=== PATIENT | female | born 1960 | race Caucasian/White ===

== ENCOUNTER → 2023-06-22 10:08 | Outpatient (REF) | payer BC, SELFPAY ==
[2023-06-22 13:25] LABS: Blood Urea Nitrogen 20 mg/dl (7-17); Calcium 9.5 mg/dl (8.4-10.2); Carbon Dioxide 29 mmol/L (22-30); Chloride 105 mmol/L (98-107); Glucose 144 mg/dl (70-99); Potassium 3.9 mmol/L (3.5-5.1); Sodium 139 mmol/L (135-145); eGFR > 60.00
== END ==
LOC: HWLAB 10:08
PROVIDERS: ATTENDING PHYSICIAN Surgery Vascular Surgery; FAMILY PHYSICIAN Family Medicine
DX: I35.0 Nonrheumatic aortic (valve) stenosis (principal)
CPT/HCPCS: 36415; 80048

== ENCOUNTER → 2023-06-27 11:39 | Outpatient (REF) | payer BC, SELFPAY | LOC: HWRAD 11:39 | PROVIDERS: ATTENDING PHYSICIAN Surgery Vascular Surgery; FAMILY PHYSICIAN Family Medicine | DX: I35.0 Nonrheumatic aortic (valve) stenosis (principal) | CPT/HCPCS: 71275; 74174; Q9967 ==

== ENCOUNTER → 2023-07-18 15:23 | Outpatient (REF) | payer BC, SELFPAY | LOC: HWRAD 15:23 | PROVIDERS: ATTENDING PHYSICIAN Physical Medicine & Rehabilitation; FAMILY PHYSICIAN Family Medicine | DX: M54.16 Radiculopathy, lumbar region (principal) | CPT/HCPCS: 72131 ==

== ENCOUNTER 2023-10-31 15:52 | Emergency (ER) | payer SELFPAY ==
[2023-10-31 15:53] VITALS: BP 138/83
[2023-10-31 16:09] VITALS: BMI 27.3
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
== END 2023-10-31 18:15 | disposition home or self-care (01) ==
LOC: EMR 15:52
PROVIDERS: EMERGENCY PHYSICIAN Emergency Medicine; FAMILY PHYSICIAN Family Medicine
DX: S20.219A Contusion of unspecified front wall of thorax, initial encounter (principal); V43.52XA Car driver injured in collision with other type car in traffic accident, initial encounter; Y92.410 Unspecified street and highway as the place of occurrence of the external cause; I71.20 Thoracic aortic aneurysm, without rupture, unspecified; I10 Essential (primary) hypertension; F41.9 Anxiety disorder, unspecified; Z87.891 Personal history of nicotine dependence; Z90.49 Acquired absence of other specified parts of digestive tract; Z95.1 Presence of aortocoronary bypass graft; Z95.2 Presence of prosthetic heart valve
CPT/HCPCS: 99283; 71046; 93005

== ENCOUNTER → 2024-01-07 08:42 | Outpatient (REF) | payer BC, SELFPAY | LOC: HWRAD 08:42 | PROVIDERS: ATTENDING PHYSICIAN Nurse Practitioner Adult Health | DX: N95.0 Postmenopausal bleeding (principal); R10.2 Pelvic and perineal pain | CPT/HCPCS: 76830; 76856 ==

== ENCOUNTER → 2024-01-28 12:47 | Outpatient (REF) | payer BC, SELFPAY | LOC: HWRAD 12:47 | PROVIDERS: ATTENDING PHYSICIAN Surgery Vascular Surgery; FAMILY PHYSICIAN Family Medicine | DX: I71.012 Dissection of descending thoracic aorta (principal) | CPT/HCPCS: 71275; 74174; Q9967 ==

== ENCOUNTER 2024-02-11 10:33 | Emergency (ER) | payer BC, SELFPAY ==
[2024-02-11] VITALS (29 sets, daily range): BP systolic 99–144; BP diastolic 54–80; PULSE 104–115; BMI 32.3
[2024-02-11] MEDS: NSS 1000 IV (11:16)
[2024-02-11 11:17] LABS: % Basophils 0.8 % (0-2); % Eosinophils 2.1 % (0-6); % Immature Granulocytes 0.6 % (0-0.5); % Lymphocytes 28.8 % (20.5-51.1); % Monocytes 5.3 % (1.7-9.3); % Neutrophils 62.4 % (42.2-75.2); Absolute Basophils 0.1 10^3/uL (0-0.2); Absolute Eosinophils 0.2 10^3/uL (0-0.7); Absolute Immature Granulocytes 0.1 10^3/uL (0-0.05); Absolute Lymphocytes 2.8 10^3/uL (1.2-3.4); Absolute Monocytes 0.5 10^3/uL (0.1-0.6); Hematocrit 22.6 % (37.0-47.0); Hemoglobin 7.6 g/dL (12.0-16.0); Mean Corp Hgb Conc. 33.6 g/dL (33.0-37.0); Mean Corpuscular Hgb 28.5 pg (27.0-31.0); Mean Corpuscular Volume 84.6 fL (81.0-99.0); Mean Platelet Volume 9.4 fL (7.4-10.4); Nucleated Red Blood Cells % 0 %; Platelet Count 295 10^3/uL (130-400); Red Blood Cell Count 2.67 10^6/uL (4.20-5.40); Red Cell Dist. Width 15.3 % (11.5-14.5); White Blood Cell Count 9.6 10^3/uL (4.8-10.8)
[2024-02-11 11:28] LABS: INR 2.33; PT 25.4 Sec (11.4-14.6)
[2024-02-11 11:33] LABS: ALT (SGPT) 20 U/L (0-35); AST (SGOT) 22 U/L (14-36); Albumin 2.6 g/dl (3.5-5.0); Alkaline Phosphatase 70 U/L (38-126); Blood Urea Nitrogen 39 mg/dl (7-17); Calcium 8.4 mg/dl (8.4-10.2); Carbon Dioxide 20 mmol/L (22-30); Chloride 106 mmol/L (98-107); Estimated Creatinine Clearance 58 ml/min; Glucose 140 mg/dl (70-99); Sodium 136 mmol/L (135-145); Total Bilirubin 0.3 mg/dl (0.2-1.3); Total Protein 4.9 g/dl (6.3-8.2); eGFR > 60.00
--- NOTE | 2024-02-11 13:17 | ED.GENMED ---
History of Present Illness
General
Chief Complaint: Vaginal Bleeding
Source: patient and family
Exam Limitations: none
Time Seen by Provider: 02/11/24 10:52
History of Present Illness
History of Present Illness:
63-year-old female with ongoing vaginal bleeding. She admits that she has had some bleeding over the last several weeks and saw gynecology. They did some biopsies and were concerned about some changes from her cervix. Patient states that
yesterday her bleeding became much worse. She is on Coumadin due to a history of mechanical aortic valve. Patient states that yesterday she had multiple clots and has significant bleeding. She also was dizzy when she stood up. Today that
continues. The bleeding seems a little better than yesterday. She did check her INR at home and it was at 3.0. The patient denies chest pain or shortness of breath but does feel weak. She is not sure what the next step is with regard to her
recent biopsies. She is cared for by Dr. Rodriguez and Dr. Landers of cardiology. She does report mild cramping but no severe pain
Past History
Past History
ED Past Medical History: HTN, Psychiatric (Anxiety) and Other (Aortic valve replacement with clear coronary arteries, aortic dissection of thoracic aorta)
ED Past Surgical History: Cardiac (CABG), Cholecystectomy, (X 1) and Orthopedic
Social History
Tobacco: Former smoker
Alcohol: Occasional
Drug: None
Personal:
Living: with family
Employment: Employed
Phy Exam
Physical Exam
Physical Exam:
CONSTITUTIONAL Patient alert and oriented to person, place and time. Well-appearing. Vital signs reviewed.
HEAD atraumatic, normocephalic.
EYES eyelids normal to inspection, Extraocular muscles intact, Conjunctiva normal, Sclera normal.
NECK normal range of motion, Trachea midline, no jugular venous distention.
RESPIRATORY CHEST No respiratory distress noted, Chest expansion equal
ABDOMEN No distention.
BACK normal inspection, no obvious deformities
UPPER EXTREMITY range of motion normal, Motor strength normal, no cyanosis, no edema.
LOWER EXTREMITY range of motion normal, Motor strength normal, no cyanosis, no edema.
NEURO Speech normal, No focal motor deficits, [place] coma scale 15, Memory normal, Cranial Nerves intact to screening exam.
SKIN skin warm, dry, and normal in color.
PSYCHIATRIC patient oriented to person place and time, Normal affect.
Course
Orders/Labs/Results
Orders:
Orders
02/11/24 11:08
CMP [Comprehensive Metabolic Panel] Urgent
Complete Blood Count/With Diff Urgent
PTT Urgent
Prothrombin Time Urgent
02/11/24 11:09
Type+Screen Urgent
02/11/24 11:15
0.9% Sodium Chloride 1000 ml [Nss] 1,000 ml IV BOLUS
02/11/24 12:45
* Blood Bank Products Urgent
Blood Bank Products: *Packed RBC Leuko(PRBC's)
Quantity: 1
Transfuse Today: Yes
Reason: Bleeding
02/11/24 14:11
EKG [Electrocardiogram (*1)] Routine
Reason for Study: Tachycardia
Abnormal Lab Results
02/11/24 02/11/24
11:08 11:09
RBC 2.67 L 10^6/uL
(4.20-5.40)
Hgb 7.6 L g/dL
(12.0-16.0)
Hct 22.6 L %
(37.0-47.0)
RDW 15.3 H %
(11.5-14.5)
Abs Immat Gran (auto) 0.1 H 10^3/uL
(0-0.05)
Immature Gran % 0.6 H %
(0-0.5)
PT 25.4 H Sec
(11.4-14.6)
Carbon Dioxide 20 L mmol/L
(22-30)
BUN 39 H mg/dl
(7-17)
Glucose 140 H mg/dl
(70-99)
Total Protein 4.9 L g/dl
(6.3-8.2)
Albumin 2.6 L g/dl
(3.5-5.0)
Crossmatch IS Only See Detail
02/11/24 11:08
02/11/24 11:08
Vital Signs
Initial and Last Documented VS:
Initial Vital Signs
Temp BP Pulse Ox
98.2 F 99/59 98
02/11/24 10:37 02/11/24 10:37 02/11/24 10:37
Last Documented Vital Signs
Temp Pulse Resp BP Pulse Ox
98.8 F 101 18 130/66 94
02/11/24 16:28 02/11/24 16:28 02/11/24 16:28 02/11/24 16:28 02/11/24 15:45
MDM/Problems Addressed
MDM/Problems Addressed:
Postmenopausal vaginal bleeding, therapeutic coagulopathy, mechanical aortic valve
*Pulse Oximetry
Patient hypoxic: no
*Critical Care Note
Total Time (30-74mins, 75-104mins- exclusive of procedures): Not Applicable
Data Reviewed
Review of Other/Old Records Reveals: Labs (Prior labs reviewed)
Source: patient and family
Prescriptions/Medications Considered But Not Given:
Considered Kcentra or FFP but patient is currently stable and is anticoagulated due to mechanical valves.
Patient Management
Discussion with other providers: Maintenance Pipefitter (Case discussed with gynecology. Dr. Rodriguez will come to evaluate the patient in the emergency department. For now we will treat with 1 unit of packed red blood cells)
Escalation/DeEscalation of care consider admission/obs:
Case discussed with cardiology. Await input by gynecology
Update Note
Update Note:
Topical treatment provided by gynecology. Seen by cardiology. They recommend continue Coumadin tomorrow and they will repeat labs on Sunday. Patient given back unit of red cells. Gynecology states that she really is not bleeding much at all
right now.
ED Attending Note
-
Portions of this chart may have been created with voice recognition software.� Occasional wrong word or��sound alike� substitutions may have occurred due to the inherent limitations of voice recognition software.
Discharge Plan
Departure
Patient Disposition: Home (Routine Discharge)
Date of Disposition: 02/11/24
Time of Disposition: 16:33
Patient with high blood pressure during this ER visit?: No
Discharge Problem:
Abnormal vaginal bleeding, Coagulopathy
Prescriptions:
No Action
omeprazole 40 MG capsule,delayed release(DR/EC)
40 mg PO DAILY
montelukast 10 MG tablet
10 mg PO HS
warfarin 5 mg Tablet
10 mg PO SUMOTHFRSA@0800
warfarin 5 mg Tablet
5 mg PO TUWE@0800
fexofenadine 180 mg Tablet
180 mg PO DAILY
aspirin 81 mg Tablet,Delayed Release (Dr/Ec)
81 mg PO HS
diltiazem HCl 300 mg capsule,extended release 24hr
300 mg PO HS
fluticasone propionate [Flonase] 50 mcg/actuation [place],Suspension
1 spray INTRANASAL DAILY PRN (Reason: allergies)
rosuvastatin 5 mg Tablet
5 mg PO HS
duloxetine 60 mg capsule,delayed release(DR/EC)
60 mg PO DAILY
pregabalin 100 mg Capsule
100 mg PO HS
Cosentyx Pen (2 Pens) 150 mg/mL pen injector
150 mg SC Q2W
Patient Comments:
10/31/2023, took last weekend per pt.
cyanocobalamin (vitamin B-12) 2,500 mcg Tablet
5,000 mcg PO DAILY PRN (Reason: supplement)
Mounjaro 2.5 mg/0.5 mL pen injector
2.5 mg SC LONGORIA@0800
Referrals:
Danilo Linares DO [Family Provider] -
Activity Restrictions/Additional Instructions:
Abnormal uterine bleeding
Therapeutic coagulopathy
Please restart Coumadin tomorrow and have your public speaking instructor recheck your labs on Sunday. Return immediately for chest pain, shortness of breath, vaginal bleeding, lightheadedness, passing out episode or any other concerns. Please follow-up with
gynecology as planned
Interventions
Interventions:
*Risk Screen - Suicide Last Done: 02/11/24 10:48
*General Assessment Last Done: 02/11/24 10:48
*Neglect/Abuse Screening Last Done: 02/11/24 10:48
ED- Fall Risk Assessment Last Done: 02/11/24 10:48
*ED COVID-19 Vaccine History Last Done: 02/11/24 10:50
ED-Female Genitourinary Assessment Last Done: 02/11/24 11:06
Discharge Date and Time
Print Language: CHADIAN
--- NOTE | 2024-02-11 14:40 | CON.CAR ---
Addendum entered and electronically signed by Juan Yates MD 02/11/24 15:32:
I saw and examined the patient.
The LEAD GENERATION REPRESENTATIVE's note was reviewed and I agree with the note.
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
for evaluation of vaginal bleeding and light-headedness.
- pRBCs for blood loss anemia
- hold warfarin for now
- watch INR
Original Note:
Consultation
Consultation Request
Date/Time Consultation Requested: 02/11/24 1330
Date/Time Consultation Performed: 02/11/24 1400
Requesting Provider: Dr. Molina
Performing Provider: Mague PAIGE for Dr. Yates
Reason for Consultation: Vaginal bleeding in patient on warfarin for mechanical AVR
Medical History
-
Chief Complaint: vaginal bleeding, light-headedness
History of Present Illness:
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
evaluation of vaginal bleeding and light-headedness. Briefly, she has had vaginal bleeding since December. She saw her electrical fitter, who did a biopsy on Sunday (6 days ago). Since then, she has been having heavy vaginal bleeding. This AM, she felt
light-headed and fatigued and she reports home BP was 70's/40's and her daughter said she looked pale. In the ER, she is seen to have hgb 7.6. She has chronic anemia, but this is worse. BP was on low end, HR was mildly elevated. She feels much
improved s/p 1 liter of IVF and vital signs have also improved. She will be getting blood in the ER. Gynecology will see in the ER. She is in no distress at the time of my assessment.
Past Medical History
Past Medical History: Asthma, NIDDM, Valvular Disease and Other (type B aortic dissection as above, psoriatic arthritis, obeity, anemia)
Social History
Tobacco: Former Smoker
Personal:
Living: With Family
Family History
Family History: Reviewed & Not Pertinent
Allergies / Home Medications
Allergy/AdvReac Type Severity Reaction Status Date / Time
adhesive tape [Adhesive Tape] Allergy Rash Verified 02/11/24 10:40
oxycodone [From Percocet] Allergy Rash Verified 02/11/24 10:40
pollen extracts Allergy Runny Verified 02/11/24 10:40
nose,
itching -
seasonal
Sulfa (Sulfonamide AdvReac hallucinati Verified 02/11/24 10:40
Antibiotics) ons
�Medication �Instructions �Recorded �Confirmed �Type
montelukast 10 mg tablet 10 mg PO HS Allergies 10/04/18 10/31/23 History
omeprazole 40 mg capsule,delayed 40 mg PO DAILY Gastrointestinal 10/04/18 10/31/23 History
release issue
warfarin 5 mg tablet 5 mg PO TUWE@0800 Blood clot 05/14/22 10/31/23 History
prevention/tx
warfarin 5 mg tablet 10 mg PO SUMOTHFRSA@0800 Blood 05/14/22 10/31/23 History
clot prevention/tx
aspirin 81 mg tablet,delayed 81 mg PO HS 10/31/23 10/31/23 History
release
cyanocobalamin (vitamin B-12) 5,000 mcg PO DAILY PRN supplement 10/31/23 10/31/23 History
2,500 mcg tablet
diltiazem HCl 300 mg 300 mg PO HS 10/31/23 10/31/23 History
capsule,extended release 24 hr
duloxetine 60 mg capsule,delayed 60 mg PO DAILY 10/31/23 10/31/23 History
release
fexofenadine 180 mg tablet 180 mg PO DAILY 10/31/23 10/31/23 History
fluticasone propionate 50 1 spray intranasal DAILY PRN 10/31/23 10/31/23 History
mcg/actuation nasal allergies
spray,suspension
pregabalin 100 mg capsule 100 mg PO HS 10/31/23 10/31/23 History
rosuvastatin 5 mg tablet 5 mg PO HS 10/31/23 10/31/23 History
secukinumab 150 mg/mL subcutaneous 150 mg SC Q2W 10/31/23 10/31/23 History
pen injector (Cosentyx Pen 300
mg/2 Pens ()
tirzepatide 2.5 mg/0.5 mL 2.5 mg SC LONGORIA@0800 10/31/23 10/31/23 History
subcutaneous pen injector
(Mounjaro)
Review of Systems
-
History Source: Patient
All other systems: Negative unless noted
Constitutional: Weight Loss (on Mounjaro) and Other (fatigue and light-headed)
: Bleeding
Physical Exam
Vital Signs
Temp Pulse Resp BP Pulse Ox
98.2 F 91 17 125/66 100
02/11/24 10:37 02/11/24 14:30 02/11/24 14:30 02/11/24 14:30 02/11/24 14:30
Lab Results
02/11/24 11:08
02/11/24 11:08
Physical Exam
General: Well Developed, Well Nourished and No Apparent Distress
HEENT: Normocephalic and Anicteric
Respiratory: Clear and Non Labored Respirations
Cardiac: Regular Rhythm
Musculoskeletal: No Edema
Skin: Warm and Dry
Neuro: AO x 3
Psych: Calm
Impression / Plan
-
Vaginal bleeding:
-patient was having bleeding, which worsened after biopsy
-she [facility] which she did not take yesterday or today in setting of bleeding
-[id number] anemia (severe, requiring PRBC's) noted and became symptomatic this AM and she is getting unit PRBC's in ER
-gynecology to see here in the emergency department and guide on plan based on recent biopsy
s/p Mechanical AVR ([place]):
-stable by most recent echo
-warfarin held with active bleed and acute (on chronic) anemia, follow INR
-await rn obgyn input
Hx type B aortic dissection:
-s/p subclavian artery bypass and TEVAR 08/21/22
HTN:
-stable currently (was low on arrival, but normalized with IVF)
-on diltiazem as OP
Data Reviewed
-
EKG: Tracing Personally Visualized and interpreted (NSR 84 BPM on Oct 31 2023. Updated EKG ordered, but telemetry reviewed and currently SR)
Medical Tests (Nuc Med, Echo etc): Report Reviewed by me (echo 03/14/23: Hyperdynamic left ventricular systolic function. Left ventricular ejection fraction is 70-75%. Mild concentric left ventricular hypertrophy. Mechanical aortic valve
replacement with peak/mean gradients of 22/11 mmHg. Trace aortic regurgitation. )
Labs: Labs Reviewed by me
== END 2024-02-11 17:11 | disposition home or self-care (01) ==
LOC: EMR 10:33
PROVIDERS: EMERGENCY PHYSICIAN Emergency Medicine; FAMILY PHYSICIAN Family Medicine
DX: N93.9 Abnormal uterine and vaginal bleeding, unspecified (principal); I10 Essential (primary) hypertension; F41.9 Anxiety disorder, unspecified; D64.9 Anemia, unspecified; E11.9 Type 2 diabetes mellitus without complications; E66.9 Obesity, unspecified; J45.909 Unspecified asthma, uncomplicated; L40.50 Arthropathic psoriasis, unspecified; Z87.891 Personal history of nicotine dependence; Z95.2 Presence of prosthetic heart valve
CPT/HCPCS: 99283; 96360; 80053; 85025; 85610; 85730; 86850; 86900; 86901; 86920; P9016

== ENCOUNTER → 2024-02-13 07:23 | Outpatient (REF) | payer BC, SELFPAY ==
[2024-02-13 10:12] LABS: Hematocrit 25.1 % (37.0-47.0); Hemoglobin 8.5 g/dL (12.0-16.0); Mean Corp Hgb Conc. 33.9 g/dL (33.0-37.0); Mean Corpuscular Hgb 30.7 pg (27.0-31.0); Mean Corpuscular Volume 90.6 fL (81.0-99.0); Mean Platelet Volume 9.4 fL (7.4-10.4); Platelet Count 276 10^3/uL (130-400); Red Blood Cell Count 2.77 10^6/uL (4.20-5.40); Red Cell Dist. Width 15.6 % (11.5-14.5); White Blood Cell Count 8.3 10^3/uL (4.8-10.8)
[2024-02-13 10:15] LABS: INR 1.35; PT 16.8 Sec (11.4-14.6)
== END ==
LOC: HWLAB 07:23
PROVIDERS: ATTENDING PHYSICIAN Internal Medicine Cardiovascular Disease; FAMILY PHYSICIAN Family Medicine
DX: D64.9 Anemia, unspecified (principal); Z79.01 Long term (current) use of anticoagulants
CPT/HCPCS: 36415; 85027; 85610

== ENCOUNTER → 2024-02-14 07:05 | Outpatient (REF) | payer BC, SELFPAY ==
[2024-02-14 09:47] LABS: Hemoglobin 8.6 g/dL (12.0-16.0); Mean Corp Hgb Conc. 33.1 g/dL (33.0-37.0); Mean Corpuscular Hgb 29.6 pg (27.0-31.0); Mean Corpuscular Volume 89.3 fL (81.0-99.0); Mean Platelet Volume 8.9 fL (7.4-10.4); Platelet Count 326 10^3/uL (130-400); Red Blood Cell Count 2.91 10^6/uL (4.20-5.40); Red Cell Dist. Width 15.8 % (11.5-14.5); White Blood Cell Count 9.7 10^3/uL (4.8-10.8)
[2024-02-14 09:57] LABS: PT 17.2 Sec (11.4-14.6)
== END ==
LOC: HWLAB 07:05
PROVIDERS: ATTENDING PHYSICIAN Internal Medicine Cardiovascular Disease; FAMILY PHYSICIAN Family Medicine
DX: D64.9 Anemia, unspecified (principal); Z95.2 Presence of prosthetic heart valve
CPT/HCPCS: 36415; 85027; 85610

== ENCOUNTER → 2024-02-18 07:04 | Outpatient (REF) | payer BC, SELFPAY ==
[2024-02-18 09:50] LABS: Hematocrit 26.2 % (37.0-47.0); Hemoglobin 8.6 g/dL (12.0-16.0); Mean Corp Hgb Conc. 32.8 g/dL (33.0-37.0); Mean Corpuscular Hgb 28.6 pg (27.0-31.0); Mean Platelet Volume 8.7 fL (7.4-10.4); Platelet Count 356 10^3/uL (130-400); Red Blood Cell Count 3.01 10^6/uL (4.20-5.40); White Blood Cell Count 8.3 10^3/uL (4.8-10.8)
[2024-02-18 10:02] LABS: INR 2.93; PT 30.5 Sec (11.4-14.6)
== END ==
LOC: HWLAB 07:04
PROVIDERS: ATTENDING PHYSICIAN Internal Medicine Cardiovascular Disease; FAMILY PHYSICIAN Family Medicine
DX: Z95.2 Presence of prosthetic heart valve (principal); D64.9 Anemia, unspecified
CPT/HCPCS: 36415; 85027; 85610

== ENCOUNTER → 2024-02-21 06:51 | Outpatient (REF) | payer BC, SELFPAY ==
[2024-02-21 09:20] LABS: Hematocrit 27.9 % (37.0-47.0); Mean Corp Hgb Conc. 32.3 g/dL (33.0-37.0); Mean Corpuscular Hgb 29.1 pg (27.0-31.0); Mean Corpuscular Volume 90.3 fL (81.0-99.0); Mean Platelet Volume 8.8 fL (7.4-10.4); Platelet Count 384 10^3/uL (130-400); Red Blood Cell Count 3.09 10^6/uL (4.20-5.40); Red Cell Dist. Width 15.8 % (11.5-14.5); White Blood Cell Count 7.6 10^3/uL (4.8-10.8)
[2024-02-21 09:25] LABS: INR 2.75; PT 29.5 Sec (11.4-14.6)
[2024-02-21 10:16] LABS: ALT (SGPT) 19 U/L (0-35); AST (SGOT) 21 U/L (14-36); Alkaline Phosphatase 83 U/L (38-126); Blood Urea Nitrogen 23 mg/dl (7-17); Calcium 8.9 mg/dl (8.4-10.2); Carbon Dioxide 25 mmol/L (22-30); Chloride 109 mmol/L (98-107); Glucose 98 mg/dl (70-99); Iron 30 ug/dl (37-170); Potassium 3.7 mmol/L (3.5-5.1); Sodium 141 mmol/L (135-145); Total Bilirubin < 0.1 mg/dl (0.2-1.3); Total Protein 5.5 g/dl (6.3-8.2); eGFR > 60.00
[2024-02-21 10:25] LABS: Percent Saturation 9 % (20-50); Total Iron Binding Capacity 333 ug/dl (265-497)
[2024-02-21 10:43] LABS: Ferritin 12.5 ng/ml (11.1-264.0)
== END ==
LOC: HWLAB 06:51
PROVIDERS: ATTENDING PHYSICIAN Internal Medicine Cardiovascular Disease; FAMILY PHYSICIAN Physician Assistant
DX: Z95.2 Presence of prosthetic heart valve (principal); D64.9 Anemia, unspecified; D50.0 Iron deficiency anemia secondary to blood loss (chronic); R53.83 Other fatigue; I35.0 Nonrheumatic aortic (valve) stenosis
CPT/HCPCS: 36415; 80053; 82728; 83540; 83550; 85027; 85610

== ENCOUNTER → 2024-02-25 06:26 | Outpatient (REF) | payer BC, SELFPAY ==
[2024-02-25 09:34] LABS: INR 2.27; PT 24.9 Sec (11.4-14.6)
== END ==
LOC: HWLAB 06:26
PROVIDERS: ATTENDING PHYSICIAN Internal Medicine Cardiovascular Disease; FAMILY PHYSICIAN Physician Assistant
DX: Z95.2 Presence of prosthetic heart valve (principal)
CPT/HCPCS: 36415; 85610

== ENCOUNTER 2024-03-07 08:56 | Outpatient (RCR) | payer BC, SELFPAY ==
[2024-02-29 07:58] VITALS: BP 129/55
[2024-02-29] MEDS: INJECTAFER 265 MG IV (08:16)
[2024-02-29 09:25] VITALS: BP 136/61
[2024-03-07 09:05] VITALS: BP 141/75
[2024-03-07] MEDS: INJECTAFER 265 MG IV (09:27)
[2024-03-07 10:10] VITALS: BP 125/70
== END 2024-03-10 08:51 | disposition home or self-care (01) ==
LOC: OID 08:56
PROVIDERS: ATTENDING PHYSICIAN Physician Assistant
DX: D50.0 Iron deficiency anemia secondary to blood loss (chronic) (principal); I35.0 Nonrheumatic aortic (valve) stenosis; Z79.01 Long term (current) use of anticoagulants; C57.9 Malignant neoplasm of female genital organ, unspecified; J43.2 Centrilobular emphysema; L40.50 Arthropathic psoriasis, unspecified
CPT/HCPCS: 96365; J1439

== ENCOUNTER → 2024-03-11 06:28 | Outpatient (REF) | payer BC, SELFPAY ==
[2024-03-11 09:03] LABS: % Basophils 0.9 % (0-2); % Eosinophils 6.3 % (0-6); % Immature Granulocytes 0.6 % (0-0.5); % Lymphocytes 27.6 % (20.5-51.1); % Monocytes 6.8 % (1.7-9.3); % Neutrophils 57.8 % (42.2-75.2); Absolute Basophils 0.1 10^3/uL (0-0.2); Absolute Eosinophils 0.4 10^3/uL (0-0.7); Absolute Lymphocytes 1.9 10^3/uL (1.2-3.4); Absolute Monocytes 0.5 10^3/uL (0.1-0.6); Absolute Neutrophils 4.1 10^3/uL (1.4-6.5); Hematocrit 35.6 % (37.0-47.0); Hemoglobin 11.1 g/dL (12.0-16.0); Mean Corp Hgb Conc. 31.2 g/dL (33.0-37.0); Mean Corpuscular Hgb 27.2 pg (27.0-31.0); Mean Corpuscular Volume 87.3 fL (81.0-99.0); Mean Platelet Volume 9.1 fL (7.4-10.4); Nucleated Red Blood Cells % 0 %; Platelet Count 384 10^3/uL (130-400); Red Blood Cell Count 4.08 10^6/uL (4.20-5.40); Red Cell Dist. Width 19.7 % (11.5-14.5)
[2024-03-11 09:04] LABS: Urine Albumin 3+ (Neg - Trace); Urine Bilirubin Negative (Negative); Urine Character Slightly Cloudy (Clear); Urine Color Yellow; Urine Glucose Negative (Negative); Urine Ketone Negative (Negative); Urine Leukocyte Trace (Negative); Urine Nitrite Negative (Negative); Urine Occult Blood 4+ (Negative); Urine Specific Gravity 1.015 (<1.030); Urine Urobilinogen Negative (Neg - 1+)
[2024-03-11 09:12] LABS: INR 2.68; PT 28.5 Sec (11.4-14.6)
[2024-03-11 09:13] LABS: APTT 47.5 Sec (23.4-35.0)
[2024-03-11 09:14] LABS: Urine Red Blood Cell 40-50 /HPF (0-2)
[2024-03-11 09:15] LABS: Urine Bacteria Few (Negative)
[2024-03-11 09:21] LABS: Glycohemoglobin (HgbA1c) 4.3 % (4.0-5.6)
[2024-03-11 09:57] LABS: ALT (SGPT) 19 U/L (0-35); AST (SGOT) 25 U/L (14-36); Albumin 2.9 g/dl (3.5-5.0); Alkaline Phosphatase 87 U/L (38-126); Blood Urea Nitrogen 16 mg/dl (7-17); Calcium 8.6 mg/dl (8.4-10.2); Carbon Dioxide 25 mmol/L (22-30); Chloride 107 mmol/L (98-107); Glucose 106 mg/dl (70-99); Iron 91 ug/dl (37-170); LDH 314 U/L (120-246); Potassium 3.5 mmol/L (3.5-5.1); Sodium 138 mmol/L (135-145); Total Bilirubin 0.2 mg/dl (0.2-1.3); Total Protein 5.4 g/dl (6.3-8.2); eGFR > 60.00
[2024-03-11 10:07] LABS: Percent Saturation 33 % (20-50); Total Iron Binding Capacity 271 ug/dl (265-497)
[2024-03-11 10:29] LABS: TSH Reflex To Free T4 4.03 uIU/ml (0.47-4.68)
[2024-03-11 11:04] LABS: Folate 8.3 ng/ml (2.76-20); Vitamin B12 640 pg/ml (239-931)
== END ==
LOC: HWLAB 06:28
PROVIDERS: ATTENDING PHYSICIAN Obstetrics & Gynecology Gynecologic Oncology; FAMILY PHYSICIAN Physician Assistant
DX: C53.1 Malignant neoplasm of exocervix (principal); D64.9 Anemia, unspecified; L40.52 Psoriatic arthritis mutilans; E11.9 Type 2 diabetes mellitus without complications; Z95.2 Presence of prosthetic heart valve; Z79.01 Long term (current) use of anticoagulants
CPT/HCPCS: 36415; 80053; 81003; 81015; 82607; 82728; 82746; 83036; 83540; 83550; 83615; 84443; 84702; 85025; 85610; 85730; 86304; 87086

== ENCOUNTER → 2024-03-19 07:32 | Outpatient (REF) | payer BC, SELFPAY | LOC: MRI 07:32 | PROVIDERS: ATTENDING PHYSICIAN Obstetrics & Gynecology Gynecologic Oncology; FAMILY PHYSICIAN Physician Assistant | DX: C53.1 Malignant neoplasm of exocervix (principal) | CPT/HCPCS: 72197; A9575 ==

== ENCOUNTER → 2024-03-21 07:43 | Outpatient (REF) | payer BC, SELFPAY | LOC: PET 07:43 | PROVIDERS: ATTENDING PHYSICIAN Obstetrics & Gynecology Gynecologic Oncology | DX: C53.1 Malignant neoplasm of exocervix (principal) | CPT/HCPCS: 78815; A9552 ==

== ENCOUNTER → 2024-03-24 06:37 | Outpatient (REF) | payer BC, SELFPAY ==
[2024-03-24 09:37] LABS: % Basophils 0.9 % (0-2); % Eosinophils 4.3 % (0-6); % Immature Granulocytes 0.4 % (0-0.5); % Lymphocytes 26.9 % (20.5-51.1); % Monocytes 9.2 % (1.7-9.3); % Neutrophils 58.3 % (42.2-75.2); Absolute Basophils 0.1 10^3/uL (0-0.2); Absolute Eosinophils 0.2 10^3/uL (0-0.7); Absolute Lymphocytes 1.4 10^3/uL (1.2-3.4); Absolute Monocytes 0.5 10^3/uL (0.1-0.6); Absolute Neutrophils 3.1 10^3/uL (1.4-6.5); Hematocrit 42.1 % (37.0-47.0); Hemoglobin 13.3 g/dL (12.0-16.0); Mean Corp Hgb Conc. 31.6 g/dL (33.0-37.0); Mean Corpuscular Hgb 28.5 pg (27.0-31.0); Mean Corpuscular Volume 90.1 fL (81.0-99.0); Mean Platelet Volume 9.6 fL (7.4-10.4); Nucleated Red Blood Cells % 0 %; Platelet Count 243 10^3/uL (130-400); Red Blood Cell Count 4.67 10^6/uL (4.20-5.40); Red Cell Dist. Width 18.2 % (11.5-14.5); White Blood Cell Count 5.3 10^3/uL (4.8-10.8)
[2024-03-24 09:50] LABS: ALT (SGPT) 21 U/L (0-35); AST (SGOT) 28 U/L (14-36); Albumin 3.1 g/dl (3.5-5.0); Alkaline Phosphatase 108 U/L (38-126); Blood Urea Nitrogen 11 mg/dl (7-17); Calcium 8.4 mg/dl (8.4-10.2); Carbon Dioxide 27 mmol/L (22-30); Chloride 104 mmol/L (98-107); Glucose 118 mg/dl (70-99); Iron 81 ug/dl (37-170); Potassium 3.2 mmol/L (3.5-5.1); Sodium 139 mmol/L (135-145); Total Bilirubin 0.2 mg/dl (0.2-1.3); Total Protein 5.4 g/dl (6.3-8.2); eGFR > 60.00
== END ==
LOC: HWLAB 06:37
PROVIDERS: ATTENDING PHYSICIAN Internal Medicine Hematology & Oncology; FAMILY PHYSICIAN Physician Assistant
DX: D50.0 Iron deficiency anemia secondary to blood loss (chronic) (principal); D64.9 Anemia, unspecified; L40.52 Psoriatic arthritis mutilans; E11.9 Type 2 diabetes mellitus without complications; Z95.2 Presence of prosthetic heart valve; Z79.01 Long term (current) use of anticoagulants; C53.1 Malignant neoplasm of exocervix
CPT/HCPCS: 36415; 80053; 82728; 83540; 85025

== ENCOUNTER 2024-03-25 06:26 | Day surgery (SDC) | payer BC, SELFPAY ==
--- NOTE | 2024-03-20 14:48 | PTCARENOTE ---
INR 2.68 & PTT 47.5 collected on 03/11/24; Daniela @ 's office was notified.
--- NOTE | 2024-03-24 06:43 | W.CON.GYNONC ---
Chief Complaint
-
NA
History of Present Illness
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
prior�PCP�(Dr�Topkis)�office�did�perform�an�exam�and�pap�which�was�abnormal.�referred�to�Dr�Gerstein�in�[facility].�.�she�is�trying�to
move�all�her�care�to�[facility].�Ultrasound�on�[place]��for�postmenopausal�bleeding�indicated�endometrium�5.2�mm,�both ovaries�were�normal�right�measuring�1.6�cm�with�measurement�1.2�cm.�Uterus�was�heterogeneous.�No�discrete�lesions
appreciated. [facility],�and�bi[facility].� Biopsies�of�the�cervix�and�ECC�have�been�performed�Y[facility]�,�cervical�biopsy�at�3:00�shows�small�focus�of�high�grade
squamous�Intraepithelial�lesion�JULIO�2�3,�ECC�shows�strips�of�epithelium),�high�grade�squamous�Intraepithelial�lesion,invasion�must be�ruled�out
An�endometrial�biopsy�was�performed�02/05/2024�which�showed�moderately�differentiated�squamous�cell�carcinoma. 5�days�after�these�biopsies�she�was�seen�in�ER�on�02/11/24�at�[facility]�for�significant�vaginal�bleeding.�She�had�a�CT�angiogram
and�received�1�u�prbc.�she�was�never�admitted.�she�followed�up�with�her�new�PCP�Hoda�Tera�Urena�and�has�received�some INJECTAFER�for�iron�deficiency. she�is�accompanied�by�her�daughter�and�.�
she�has�a�complicated�medical�history�as�noted�beloew.�
Medications:
Cymbalta 60 mg capsule,delayed release 03/10/2024
fexofenadine 30 mg disintegrating tablet 03/10/2024
lorazepam 0.5 mg tablet 03/10/2024 10 0 1 p.o. q. day prn
Mounjaro 10 mg/0.5 mL subcutaneous pen 03/10/2024
omeprazole 10 mg capsule,delayed release 03/10/2024
oxycodone 5 mg tablet 03/10/2024 30 0 1 p.o. twice a day (BID) prn
pregabalin 25 mg capsule 03/10/2024
Singulair 4 mg chewable tablet 03/10/2024
warfarin 10 mg tablet 03/10/2024 0 10 mg 4 days
warfarin 5 mg tablet 03/10/2024 0 3 days
Social�History Former�Smoker.�Year�it�2021. Denies�any�prior�alcohol�use. Occupational�Status:�Former���disability. Patient�has�not�had�any�occupational�exposure. Marital�Status:�Patient�is� Gynecological�History
Age�at�menopause:�50�years.�Patient�reports�3�pregnancies.�Her�age�at�first�full�term��was�2�years. No�history�of�hormone�replacement�therapy. Shelly Navarro, 1960 Page 2 of 5 Family�Medical�History
Mother�hypertension,�breast�cancer,�uterine�bladder�cancer Father,�lung�cancer sister,�breast�cancer
Medical History
Past Medical History
Additional Past Medical History:
allergies anemia anxiety arthritis Depression diabetes� GERD Heart�murmur Hypertention
Additional Past Surgical History:
Mechnical�Heart�valve�replacement�(aortic�stenosis)�
Cholecystectomy. Aortic�Dissection�(thoracic)�repair�by�Dr�[facility]�(left�carotid�to�subclavian�bypass,�Zone�TEVAR,�exclusion�of�left�subclavian,�landing distally�proximal�to�celiac�trunk,�IVUS�and�coil�embolization�of�subclavian�a.
C�section
Allergies
Allergies reflect when allergies were last updated in [facility].
adhesive tape [Adhesive Tape] Allergy (Verified 03/21/24 12:04)
Rash
oxycodone [From Percocet] Allergy (Verified 03/21/24 12:04)
Rash
pollen extracts Allergy (Verified 03/21/24 12:04)
Runny nose, itching - seasonal
Sulfa (Sulfonamide Antibiotics) Adverse Reaction (Verified 03/21/24 12:04)
hallucinations
Physical Exam
Physical Exam
Pelvic�Examination: External�normal�labia,�urethra,�anus.� Vagina:�Normal�mucosa.� Cervix:�Ectocervix�with�no�significant�abnormality,�there�is�a�solid�white�and�pink�lesion�within�the�endocervical�canal.�All�vaginal
fornices�are�without�any�abnormalities�bloody�discharge�present,�,�bimanual�and�rectovaginal�examination�reveals�the�cervix�to�be
firm,�expanded,�measuring�about�4�cm�in�width�with�some�involvement�of�left�parametria,�bilateral�sidewall�are�free�of�disease. Uterus:�normal�size.� Adnexa:�No�pelvic�mass.� RVE:�no�masses�or�nodularity
General:�Well�developed,�well�nourished�patient.�In�no�acute�distress. Neck:�No�thyromegaly.�No�cervical�lymphadenopathy. Lungs:�Clear�to�auscultation.�Good�air�movement�bilaterally. Cardiac:�Regular�rate.�Regular�rhythm.�No�murmurs�appreciated.
Right�Breast:�No�masses�or�dimpling.�No�nipple�discharge. No�masses�or�dimpling.�No�nipple�discharge. Left�Breast: Abdomen:�Abdomen�is�soft.�Non�tender�to�palpation.�Non�distended. Extremities:�No�edema.
Hematologic/Lymphatic:�No�palpable�lymphadenopathy. Musculoskeletal:�Normal�range�of�motion.�Strength�and�Tone�are�normal. Skin:Non�jaundiced.�No�petechia.�No�purpura. Neurologic:�Speech�is�fluent.�Normal�gait�and�station.�Cranial�nerves�intact.
Impression / Plan
-
This is a 63�year�old woman who has new diagnosis of squamous cell carcinoma of the cervix based on limited biopsy of cervix as
well as attempted endometrial biopsy sent to [facility].
My clinical examination today is suggestive of a 3 to 4 cm endophytic barrel�shaped size cervix, with possible left parametrial
invasion. Examination is difficult because of patient's tolerance.
I am proposing an exam under anesthesia with the LEEP biopsy of the cervix as well as cystoscopy proctoscopy to complete
staging procedure. In addition MRI of the pelvis with and without contrast should be done for better evaluation of tumor size and
parametrial invasion and a baseline PET CT scan will be obtained to assess whether there is any evidence of metabolic activity
involving lymph nodes in the pelvic and aortic region.
The patient has significant comorbidities including chronic anticoagulation with warfarin.
For the purposes of her exam under anesthesia she would need to stop warfarin and bridge with enoxaparin and resume warfarin
postprocedure.
Based on my limited exam in the office today her cancer appears to be somewhat enlarged and she may not be a good candidate
for surgical treatment but I will reevaluate that after exam under anesthesia and MRI. Additionally she has significant comorbidities
including emphysema and chronic anticoagulation and mechanical valve which may not be suitable for radical pelvic surgery
considerations.
We discussed that for locally advanced cervical cancer chemoradiation is standard of care, she will likely be treated with weekly
cisplatin as well as whole pelvic radiotherapy followed by brachytherapy implant placement in brachytherapy of the cervix. We
reviewed that recent advances have revealed that neoadjuvant chemotherapy with 5 weeks of weekly Taxol carboplatin has improved
overall survival, alternative treatment with addition of pembrolizumab to the regimen and maintenance pembrolizumab for a total of 2
years has also improved overall survival. 1 of these strategies will likely be employed here. The patient has psoriatic arthritis and
may not be a good candidate for immune checkpoint inhibitor.
I will refer her to Drs. Maggy Gibbs in Rad Onc and Dr Jailyn Maldonado in Med Onc so that together we can coordinate her care, I
plan to present her at tumor board conference after some of the imaging studies have been completed.
[2024-03-25] VITALS (11 sets, daily range): BP systolic 76–157; BP diastolic 56–78; BMI 30.6
[2024-03-25 07:46] LABS: Glucose - Point of Care 84 mg/dl (70-99)
[2024-03-25 08:02] LABS: INR 1.01; PT 13.6 Sec (11.4-14.6)
[2024-03-25] MEDS: NEURONTIN 300 MG PO (08:11)
[2024-03-25] MEDS: TYLENOL 1000 MG PO (08:11)
[2024-03-25] MEDS: CELEBREX 200 MG PO (08:17)
[2024-03-25 09:35] LABS: Glucose - Point of Care 86 mg/dl (70-99)
[2024-03-25 11:14] LABS: Glucose - Point of Care 85 mg/dl (70-99)
[2024-03-25] MEDS: DILAUDID 0.25 MG IV (11:20)
--- NOTE | 2024-03-25 16:31 | OR.RPT ---
Operative Report
Operative Report
Date of procedure: March 25, 2024
Preoperative diagnosis: Abnormal postmenopausal vaginal and perineal bleeding, suspected squamous cell carcinoma of the cervix
Postop diagnosis: Same
Procedure: Exam under anesthesia, LEEP biopsy of cervix, diagnostic cystoscopy, rigid proctoscopy
Surgeon: Robert Whipple
Assist: Asad Cui PA-C
Anesthesia: General LMA intubation, paracervical block 10 cc 1% lidocaine
Complication: None
Estimated blood loss: 20 cc
Procedure in detail this patient was brought to the operating room and placed in supine position general anesthesia was administered LMA intubation was completed. Patient was placed in lithotomy position using yellowfin stirrups and prepped on the
perineum and vagina and lower abdomen. She was draped timeout procedure was completed and she had received Ancef. 70 degree cystoscope was introduced in the bladder, the entire wall of the bladder was examined after the bladder was distended with
250 cc of sterile saline. There was no abnormal lesions present. The trigone was examined both ureteral orifices were visualized and good ureteral jets were present. Urethra was examined and there was no abnormal lesions present. A sample of
urine was submitted for cytology.
Next we went ahead and placed a weighted speculum in the posterior fornix. Anterior lip of the cervix was grasped with single-tooth tenaculum. The exocervix appears mostly normal however in the posterior aspect of the cervix there is a firm area.
On bimanual and rectovaginal examination the cervix appears to be expanded to 4 to 5 cm and there is evidence of left parametrial shortening or involvement. Bilateral sidewalls are free of disease. The entire vaginal fornices as well as the entire
vagina is without any abnormalities. I went ahead and used a 20 mm loop to perform a LEEP procedure and a second pass was performed which was fragmented into specimens these were submitted as second pass biopsy. Next the cervical canal was
explored, the cervical canal is actually occluded due to the presence of tumor. Endocervical curetting was performed and moderate amount of tissue suspicious for malignancy was extracted and submitted to pathology. At the completion of the
procedure rollerball cautery was performed to establish good hemostasis on the conization bed. Monsel solution was applied to the cervix excellent hemostasis was present. Tenaculum was removed.
Next rigid proctoscopy was performed up to approximately 12 cm. The mucosal surfaces of anus and rectum were examined and there was no abnormal lesions present.
At the completion of the procedure it is established that the patient has a 4 to 5 cm expanded cervix suspicious for malignancy with extension into left parametria. There is no evidence of vaginal bladder or rectal or anal involvement.
Patient was awakened extubated and returned back to recovery room stable awake and extubated condition. Counts of laps instruments and needle was correct x 2. I was present and scrubbed for entire procedure as dictated above.
Disposition: To PACU awake extubated stable
== END 2024-03-25 12:52 | disposition home or self-care (01) ==
LOC: SDS 06:26
PROVIDERS: ATTENDING PHYSICIAN Obstetrics & Gynecology Gynecologic Oncology
DX: C53.9 Malignant neoplasm of cervix uteri, unspecified (principal); C77.9 Secondary and unspecified malignant neoplasm of lymph node, unspecified; N95.0 Postmenopausal bleeding
CPT/HCPCS: 57522; 88305; 88307; 82962; 85610; 87086; 88342

== ENCOUNTER → 2024-03-27 09:55 | Outpatient (REF) | payer BC, SELFPAY ==
[2024-03-27 06:00] VITALS: BMI 30.8
[2024-03-27 10:26] LABS: PT 12.6 Sec (11.4-14.6)
[2024-03-27 10:28] VITALS: BP 156/78; BP_SYST 68
[2024-03-27] MEDS: ANCEF 10 IV (11:09)
[2024-03-27 12:30] VITALS: BP 157/80
[2024-03-27 12:35] VITALS: BP 175/78
[2024-03-27 12:40] VITALS: BP 166/68
[2024-03-27 12:45] VITALS: BP 166/74
[2024-03-27 12:50] VITALS: BP 166/78
== END ==
LOC: RADI 09:55
PROVIDERS: ATTENDING PHYSICIAN Internal Medicine Hematology & Oncology; REFERRING PHYSICIAN Physician Assistant
DX: C53.0 Malignant neoplasm of endocervix (principal)
CPT/HCPCS: 36561; 76937; 77001; 85610; 99152; 99153; C1788

== ENCOUNTER → 2024-03-28 08:08 | Outpatient (REF) | payer BC, SELFPAY | LOC: HWRCS 08:08 | PROVIDERS: ATTENDING PHYSICIAN Internal Medicine Cardiovascular Disease; FAMILY PHYSICIAN Physician Assistant | DX: Z01.818 Encounter for other preprocedural examination (principal); Z95.2 Presence of prosthetic heart valve | CPT/HCPCS: 93306 ==

== ENCOUNTER → 2024-04-02 06:31 | Outpatient (REF) | payer BC, SELFPAY ==
[2024-04-02 09:39] LABS: % Basophils 0.6 % (0-2); % Eosinophils 6.5 % (0-6); % Immature Granulocytes 0.5 % (0-0.5); % Lymphocytes 21.9 % (20.5-51.1); % Monocytes 6.9 % (1.7-9.3); % Neutrophils 63.6 % (42.2-75.2); Absolute Basophils 0.1 10^3/uL (0-0.2); Absolute Eosinophils 0.6 10^3/uL (0-0.7); Absolute Lymphocytes 1.9 10^3/uL (1.2-3.4); Absolute Monocytes 0.6 10^3/uL (0.1-0.6); Absolute Neutrophils 5.5 10^3/uL (1.4-6.5); Mean Corp Hgb Conc. 31.7 g/dL (33.0-37.0); Mean Corpuscular Hgb 28.4 pg (27.0-31.0); Mean Corpuscular Volume 89.5 fL (81.0-99.0); Mean Platelet Volume 8.7 fL (7.4-10.4); Nucleated Red Blood Cells % 0 %; Platelet Count 289 10^3/uL (130-400); Red Blood Cell Count 4.58 10^6/uL (4.20-5.40); Red Cell Dist. Width 17.3 % (11.5-14.5); White Blood Cell Count 8.7 10^3/uL (4.8-10.8)
[2024-04-02 09:59] LABS: ALT (SGPT) 21 U/L (0-35); AST (SGOT) 24 U/L (14-36); Albumin 3.2 g/dl (3.5-5.0); Alkaline Phosphatase 90 U/L (38-126); Blood Urea Nitrogen 14 mg/dl (7-17); Calcium 8.5 mg/dl (8.4-10.2); Carbon Dioxide 26 mmol/L (22-30); Chloride 107 mmol/L (98-107); Glucose 102 mg/dl (70-99); Potassium 3.4 mmol/L (3.5-5.1); Sodium 140 mmol/L (135-145); Total Bilirubin < 0.1 mg/dl (0.2-1.3); Total Protein 5.5 g/dl (6.3-8.2); eGFR > 60.00
== END ==
LOC: HWLAB 06:31
PROVIDERS: ATTENDING PHYSICIAN Internal Medicine Hematology & Oncology; FAMILY PHYSICIAN Physician Assistant
DX: D64.9 Anemia, unspecified (principal); L40.52 Psoriatic arthritis mutilans; E11.9 Type 2 diabetes mellitus without complications; Z95.2 Presence of prosthetic heart valve; Z79.01 Long term (current) use of anticoagulants; C53.1 Malignant neoplasm of exocervix
CPT/HCPCS: 36415; 80053; 85025

== ENCOUNTER → 2024-04-09 06:23 | Outpatient (REF) | payer BC, SELFPAY ==
[2024-04-09 09:45] LABS: % Basophils 1.2 % (0-2); % Eosinophils 5.4 % (0-6); % Immature Granulocytes 0.7 % (0-0.5); % Lymphocytes 29.4 % (20.5-51.1); % Monocytes 4.4 % (1.7-9.3); % Neutrophils 58.9 % (42.2-75.2); Absolute Basophils 0.1 10^3/uL (0-0.2); Absolute Eosinophils 0.3 10^3/uL (0-0.7); Absolute Lymphocytes 1.7 10^3/uL (1.2-3.4); Absolute Monocytes 0.3 10^3/uL (0.1-0.6); Absolute Neutrophils 3.5 10^3/uL (1.4-6.5); Hematocrit 42.8 % (37.0-47.0); Hemoglobin 13.6 g/dL (12.0-16.0); Mean Corp Hgb Conc. 31.8 g/dL (33.0-37.0); Mean Corpuscular Volume 91.3 fL (81.0-99.0); Mean Platelet Volume 9.3 fL (7.4-10.4); Nucleated Red Blood Cells % 0 %; Platelet Count 278 10^3/uL (130-400); Red Blood Cell Count 4.69 10^6/uL (4.20-5.40); Red Cell Dist. Width 16.8 % (11.5-14.5); White Blood Cell Count 5.9 10^3/uL (4.8-10.8)
[2024-04-09 10:27] LABS: ALT (SGPT) 30 U/L (0-35); AST (SGOT) 28 U/L (14-36); Albumin 3.6 g/dl (3.5-5.0); Alkaline Phosphatase 94 U/L (38-126); Blood Urea Nitrogen 15 mg/dl (7-17); Calcium 9.2 mg/dl (8.4-10.2); Carbon Dioxide 28 mmol/L (22-30); Chloride 103 mmol/L (98-107); Glucose 103 mg/dl (70-99); Potassium 3.7 mmol/L (3.5-5.1); Sodium 139 mmol/L (135-145); Total Bilirubin 0.2 mg/dl (0.2-1.3); Total Protein 6.1 g/dl (6.3-8.2); eGFR > 60.00
== END ==
LOC: HWLAB 06:23
PROVIDERS: ATTENDING PHYSICIAN Obstetrics & Gynecology Gynecologic Oncology; FAMILY PHYSICIAN Physician Assistant
DX: D64.9 Anemia, unspecified (principal); Z79.01 Long term (current) use of anticoagulants; C53.1 Malignant neoplasm of exocervix
CPT/HCPCS: 36415; 80053; 85025

== ENCOUNTER → 2024-04-14 11:24 | Outpatient (REF) | payer BC, SELFPAY ==
[2024-04-14 17:04] LABS: Urine Albumin 1+ (Neg - Trace); Urine Bilirubin 1+ (Negative); Urine Character Slightly Cloudy (Clear); Urine Color Yellow; Urine Glucose Negative (Negative); Urine Ketone Negative (Negative); Urine Leukocyte 2+ (Negative); Urine Nitrite Negative (Negative); Urine Occult Blood 1+ (Negative); Urine Specific Gravity 1.025 (<1.030); Urine Urobilinogen Negative (Neg - 1+)
[2024-04-14 18:40] LABS: Urine Squamous Cell >30 /LPF (Few)
[2024-04-14 18:41] LABS: Urine Amorphous Seen; Urine Mucus Moderate
[2024-04-14 18:42] LABS: Urine Bacteria Moderate (Negative)
== END ==
LOC: HWLAB 11:24
PROVIDERS: ATTENDING PHYSICIAN Internal Medicine Hematology & Oncology; FAMILY PHYSICIAN Physician Assistant
DX: D64.9 Anemia, unspecified (principal); C53.1 Malignant neoplasm of exocervix; Z79.01 Long term (current) use of anticoagulants; E11.9 Type 2 diabetes mellitus without complications
CPT/HCPCS: 81003; 81015; 87086

== ENCOUNTER → 2024-04-17 06:26 | Outpatient (REF) | payer BC, SELFPAY ==
[2024-04-17 09:45] LABS: % Basophils 1.2 % (0-2); % Eosinophils 2.8 % (0-6); % Immature Granulocytes 0.4 % (0-0.5); % Lymphocytes 36.5 % (20.5-51.1); % Monocytes 4.8 % (1.7-9.3); % Neutrophils 54.3 % (42.2-75.2); Absolute Basophils 0.1 10^3/uL (0-0.2); Absolute Eosinophils 0.1 10^3/uL (0-0.7); Absolute Lymphocytes 1.8 10^3/uL (1.2-3.4); Absolute Monocytes 0.2 10^3/uL (0.1-0.6); Absolute Neutrophils 2.7 10^3/uL (1.4-6.5); Hematocrit 44.6 % (37.0-47.0); Hemoglobin 14.1 g/dL (12.0-16.0); Mean Corp Hgb Conc. 31.6 g/dL (33.0-37.0); Mean Corpuscular Hgb 29.1 pg (27.0-31.0); Nucleated Red Blood Cells % 0 %; Platelet Count 257 10^3/uL (130-400); Red Blood Cell Count 4.85 10^6/uL (4.20-5.40); Red Cell Dist. Width 16.9 % (11.5-14.5)
[2024-04-17 10:51] LABS: ALT (SGPT) 32 U/L (0-35); AST (SGOT) 27 U/L (14-36); Albumin 3.9 g/dl (3.5-5.0); Alkaline Phosphatase 86 U/L (38-126); Blood Urea Nitrogen 20 mg/dl (7-17); Calcium 9.8 mg/dl (8.4-10.2); Carbon Dioxide 27 mmol/L (22-30); Chloride 102 mmol/L (98-107); Glucose 105 mg/dl (70-99); Potassium 3.7 mmol/L (3.5-5.1); Sodium 140 mmol/L (135-145); Total Bilirubin 0.3 mg/dl (0.2-1.3); Total Protein 6.4 g/dl (6.3-8.2); eGFR > 60.00
== END ==
LOC: HWLAB 06:26
PROVIDERS: ATTENDING PHYSICIAN Obstetrics & Gynecology Gynecologic Oncology; FAMILY PHYSICIAN Physician Assistant
DX: D64.9 Anemia, unspecified (principal); L40.52 Psoriatic arthritis mutilans; E11.9 Type 2 diabetes mellitus without complications
CPT/HCPCS: 36415; 80053; 85025

== ENCOUNTER → 2024-04-24 06:24 | Outpatient (REF) | payer BC, SELFPAY ==
[2024-04-24 09:36] LABS: % Eosinophils 0.8 % (0-6); % Immature Granulocytes 0.4 % (0-0.5); % Lymphocytes 38.3 % (20.5-51.1); % Monocytes 4.8 % (1.7-9.3); % Neutrophils 54.7 % (42.2-75.2); Absolute Basophils 0.1 10^3/uL (0-0.2); Absolute Lymphocytes 1.9 10^3/uL (1.2-3.4); Absolute Monocytes 0.2 10^3/uL (0.1-0.6); Absolute Neutrophils 2.7 10^3/uL (1.4-6.5); Hemoglobin 13.8 g/dL (12.0-16.0); Mean Corp Hgb Conc. 31.4 g/dL (33.0-37.0); Mean Corpuscular Hgb 28.8 pg (27.0-31.0); Mean Corpuscular Volume 91.7 fL (81.0-99.0); Mean Platelet Volume 9.3 fL (7.4-10.4); Nucleated Red Blood Cells % 0 %; Platelet Count 214 10^3/uL (130-400); Red Cell Dist. Width 16.6 % (11.5-14.5)
[2024-04-24 10:39] LABS: ALT (SGPT) 36 U/L (0-35); AST (SGOT) 38 U/L (14-36); Albumin 3.9 g/dl (3.5-5.0); Alkaline Phosphatase 89 U/L (38-126); Blood Urea Nitrogen 11 mg/dl (7-17); Carbon Dioxide 25 mmol/L (22-30); Chloride 102 mmol/L (98-107); Glucose 115 mg/dl (70-99); Potassium 3.4 mmol/L (3.5-5.1); Sodium 137 mmol/L (135-145); Total Bilirubin 0.4 mg/dl (0.2-1.3); Total Protein 6.2 g/dl (6.3-8.2); eGFR > 60.00
== END ==
LOC: HWLAB 06:24
PROVIDERS: ATTENDING PHYSICIAN Obstetrics & Gynecology Gynecologic Oncology; FAMILY PHYSICIAN Physician Assistant
DX: D64.9 Anemia, unspecified (principal); L40.52 Psoriatic arthritis mutilans; E11.9 Type 2 diabetes mellitus without complications; Z95.2 Presence of prosthetic heart valve; Z79.01 Long term (current) use of anticoagulants; C53.1 Malignant neoplasm of exocervix
CPT/HCPCS: 36415; 80053; 85025

== ENCOUNTER → 2024-05-01 06:25 | Outpatient (REF) | payer BC, SELFPAY ==
[2024-05-01 09:24] LABS: % Basophils 1.2 % (0-2); % Eosinophils 0.9 % (0-6); % Immature Granulocytes 0.5 % (0-0.5); % Lymphocytes 38.9 % (20.5-51.1); % Monocytes 4.3 % (1.7-9.3); % Neutrophils 54.2 % (42.2-75.2); Absolute Basophils 0.1 10^3/uL (0-0.2); Absolute Lymphocytes 1.6 10^3/uL (1.2-3.4); Absolute Monocytes 0.2 10^3/uL (0.1-0.6); Absolute Neutrophils 2.3 10^3/uL (1.4-6.5); Hematocrit 41.9 % (37.0-47.0); Hemoglobin 13.8 g/dL (12.0-16.0); Mean Corp Hgb Conc. 32.9 g/dL (33.0-37.0); Mean Corpuscular Hgb 29.5 pg (27.0-31.0); Mean Corpuscular Volume 89.5 fL (81.0-99.0); Mean Platelet Volume 9.2 fL (7.4-10.4); Nucleated Red Blood Cells % 0 %; Platelet Count 137 10^3/uL (130-400); Red Blood Cell Count 4.68 10^6/uL (4.20-5.40); Red Cell Dist. Width 16.8 % (11.5-14.5); White Blood Cell Count 4.2 10^3/uL (4.8-10.8)
[2024-05-01 10:32] LABS: ALT (SGPT) 34 U/L (0-35); AST (SGOT) 29 U/L (14-36); Alkaline Phosphatase 89 U/L (38-126); Blood Urea Nitrogen 15 mg/dl (7-17); Calcium 9.4 mg/dl (8.4-10.2); Carbon Dioxide 23 mmol/L (22-30); Chloride 101 mmol/L (98-107); Glucose 124 mg/dl (70-99); Potassium 3.2 mmol/L (3.5-5.1); Sodium 135 mmol/L (135-145); Total Bilirubin 0.5 mg/dl (0.2-1.3); Total Protein 6.4 g/dl (6.3-8.2); eGFR > 60.00
== END ==
LOC: HWLAB 06:25
PROVIDERS: ATTENDING PHYSICIAN Obstetrics & Gynecology Gynecologic Oncology; FAMILY PHYSICIAN Physician Assistant
DX: D64.9 Anemia, unspecified (principal); L40.52 Psoriatic arthritis mutilans; E11.9 Type 2 diabetes mellitus without complications; Z95.2 Presence of prosthetic heart valve; Z79.01 Long term (current) use of anticoagulants; C53.1 Malignant neoplasm of exocervix
CPT/HCPCS: 36415; 80053; 85025

== ENCOUNTER → 2024-05-08 06:31 | Outpatient (REF) | payer BC, SELFPAY ==
[2024-05-08 09:22] LABS: % Basophils 0.7 % (0-2); % Eosinophils 1.1 % (0-6); % Immature Granulocytes 0.4 % (0-0.5); % Lymphocytes 42.8 % (20.5-51.1); % Monocytes 3.3 % (1.7-9.3); % Neutrophils 51.7 % (42.2-75.2); Absolute Lymphocytes 1.2 10^3/uL (1.2-3.4); Absolute Monocytes 0.1 10^3/uL (0.1-0.6); Absolute Neutrophils 1.4 10^3/uL (1.4-6.5); Hematocrit 38.8 % (37.0-47.0); Hemoglobin 12.7 g/dL (12.0-16.0); Mean Corp Hgb Conc. 32.7 g/dL (33.0-37.0); Mean Corpuscular Hgb 29.6 pg (27.0-31.0); Mean Corpuscular Volume 90.4 fL (81.0-99.0); Mean Platelet Volume 9.2 fL (7.4-10.4); Nucleated Red Blood Cells % 0 %; Platelet Count 147 10^3/uL (130-400); Red Blood Cell Count 4.29 10^6/uL (4.20-5.40); Red Cell Dist. Width 16.8 % (11.5-14.5); White Blood Cell Count 2.8 10^3/uL (4.8-10.8)
[2024-05-08 10:41] LABS: Erythrocyte Sed Rate 34 mm/hour (0-20)
[2024-05-08 10:53] LABS: ALT (SGPT) 35 U/L (0-35); AST (SGOT) 29 U/L (14-36); Albumin 3.9 g/dl (3.5-5.0); Alkaline Phosphatase 93 U/L (38-126); Blood Urea Nitrogen 12 mg/dl (7-17); Calcium 9.4 mg/dl (8.4-10.2); Carbon Dioxide 23 mmol/L (22-30); Chloride 102 mmol/L (98-107); Glucose 112 mg/dl (70-99); Potassium 3.5 mmol/L (3.5-5.1); Sodium 136 mmol/L (135-145); Total Bilirubin 0.3 mg/dl (0.2-1.3); Total Protein 6.3 g/dl (6.3-8.2); eGFR > 60.00
[2024-05-10 06:22] LABS: Quantiferon Mitogen minus NIL 9.98 IU/mL; Quantiferon NIL 0.02 IU/mL; Quantiferon Plus TB2 minus NIL 0.01 IU/mL (<=0.34); Quantiferon TB Gold Plus Negative (Negative)
== END ==
LOC: HWLAB 06:31
PROVIDERS: ATTENDING PHYSICIAN Internal Medicine Rheumatology; FAMILY PHYSICIAN Physician Assistant; REFERRING PHYSICIAN Obstetrics & Gynecology Gynecologic Oncology
DX: D64.9 Anemia, unspecified (principal); E11.9 Type 2 diabetes mellitus without complications; C53.1 Malignant neoplasm of exocervix; Z79.899 Other long term (current) drug therapy
CPT/HCPCS: 36415; 80053; 85025; 85652; 86140; 86480

== ENCOUNTER → 2024-05-09 16:34 | Outpatient (REF) | payer BC, SELFPAY ==
[2024-05-09 09:30] LABS: % Basophils 0.7 % (0-2); % Eosinophils 1.6 % (0-6); % Immature Granulocytes 0.3 % (0-0.5); % Lymphocytes 51.3 % (20.5-51.1); % Monocytes 5.6 % (1.7-9.3); % Neutrophils 40.5 % (42.2-75.2); Absolute Eosinophils 0.1 10^3/uL (0-0.7); Absolute Lymphocytes 1.6 10^3/uL (1.2-3.4); Absolute Monocytes 0.2 10^3/uL (0.1-0.6); Absolute Neutrophils 1.2 10^3/uL (1.4-6.5); Hematocrit 39.1 % (37.0-47.0); Hemoglobin 12.8 g/dL (12.0-16.0); Mean Corp Hgb Conc. 32.7 g/dL (33.0-37.0); Mean Corpuscular Hgb 29.5 pg (27.0-31.0); Mean Corpuscular Volume 90.1 fL (81.0-99.0); Mean Platelet Volume 8.6 fL (7.4-10.4); Platelet Count 156 10^3/uL (130-400); Red Blood Cell Count 4.34 10^6/uL (4.20-5.40); Red Cell Dist. Width 16.6 % (11.5-14.5); White Blood Cell Count 3.1 10^3/uL (4.8-10.8)
[2024-05-09 10:01] LABS: INR 2.77; PT 29.6 Sec (11.4-14.6)
== END ==
LOC: OIDL 16:34
PROVIDERS: ATTENDING PHYSICIAN Obstetrics & Gynecology Gynecologic Oncology
DX: D64.9 Anemia, unspecified (principal); C53.1 Malignant neoplasm of exocervix; Z79.01 Long term (current) use of anticoagulants; Z95.2 Presence of prosthetic heart valve
CPT/HCPCS: 85025; 85610

== ENCOUNTER → 2024-05-22 06:34 | Outpatient (REF) | payer BC, SELFPAY ==
[2024-05-22 10:14] LABS: Hematocrit 36.6 % (37.0-47.0); Hemoglobin 11.8 g/dL (12.0-16.0); Mean Corp Hgb Conc. 32.2 g/dL (33.0-37.0); Mean Corpuscular Hgb 29.6 pg (27.0-31.0); Mean Platelet Volume 9.2 fL (7.4-10.4); Platelet Count 243 10^3/uL (130-400); Red Blood Cell Count 3.98 10^6/uL (4.20-5.40); Red Cell Dist. Width 17.2 % (11.5-14.5); White Blood Cell Count 3.3 10^3/uL (4.8-10.8)
[2024-05-22 10:44] LABS: ALT (SGPT) 16 U/L (0-35); AST (SGOT) 17 U/L (14-36); Albumin 3.6 g/dl (3.5-5.0); Alkaline Phosphatase 79 U/L (38-126); Blood Urea Nitrogen 10 mg/dl (7-17); Calcium 8.7 mg/dl (8.4-10.2); Carbon Dioxide 28 mmol/L (22-30); Chloride 99 mmol/L (98-107); Glucose 110 mg/dl (70-99); Magnesium 1.8 mg/dl (1.6-2.3); Potassium 3.2 mmol/L (3.5-5.1); Sodium 135 mmol/L (135-145); Total Bilirubin 0.4 mg/dl (0.2-1.3); Total Protein 6.1 g/dl (6.3-8.2); eGFR > 60.00
[2024-05-22 13:45] LABS: Absolute Neutrophils -Man Diff 1.3 10^3/uL (1.4-6.5); Band Neutrophils 0 % (0-3); Lymphocytes 36 % (20-51); Monocytes 22 % (2-9); Segmented Neutrophils 42 % (42-75)
[2024-05-22 13:46] LABS: Normal RBC Morphology Yes; Platelets Checked Yes; Total Cells Counted 100
== END ==
LOC: HWLAB 06:34
PROVIDERS: ATTENDING PHYSICIAN Obstetrics & Gynecology Gynecologic Oncology; FAMILY PHYSICIAN Physician Assistant
DX: D64.9 Anemia, unspecified (principal); C53.1 Malignant neoplasm of exocervix; Z79.01 Long term (current) use of anticoagulants; Z95.2 Presence of prosthetic heart valve; L40.52 Psoriatic arthritis mutilans; E11.9 Type 2 diabetes mellitus without complications; K59.00 Constipation, unspecified
CPT/HCPCS: 36415; 80053; 83735; 85025

== ENCOUNTER → 2024-05-29 06:26 | Outpatient (REF) | payer BC, SELFPAY ==
[2024-05-29 10:07] LABS: % Basophils 0.6 % (0-2); % Eosinophils 0.6 % (0-6); % Immature Granulocytes 1.9 % (0-0.5); % Lymphocytes 34.1 % (20.5-51.1); % Monocytes 8.2 % (1.7-9.3); % Neutrophils 54.6 % (42.2-75.2); Absolute Immature Granulocytes 0.1 10^3/uL (0-0.05); Absolute Lymphocytes 1.8 10^3/uL (1.2-3.4); Absolute Monocytes 0.4 10^3/uL (0.1-0.6); Absolute Neutrophils 2.9 10^3/uL (1.4-6.5); Hematocrit 39.8 % (37.0-47.0); Hemoglobin 13.1 g/dL (12.0-16.0); Mean Corp Hgb Conc. 32.9 g/dL (33.0-37.0); Mean Corpuscular Hgb 29.7 pg (27.0-31.0); Mean Corpuscular Volume 90.2 fL (81.0-99.0); Mean Platelet Volume 8.2 fL (7.4-10.4); Nucleated Red Blood Cells % 0 %; Platelet Count 239 10^3/uL (130-400); Red Blood Cell Count 4.41 10^6/uL (4.20-5.40); Red Cell Dist. Width 16.7 % (11.5-14.5); White Blood Cell Count 5.2 10^3/uL (4.8-10.8)
[2024-05-29 11:52] LABS: ALT (SGPT) 32 U/L (0-35); AST (SGOT) 35 U/L (14-36); Albumin 4.1 g/dl (3.5-5.0); Alkaline Phosphatase 102 U/L (38-126); Blood Urea Nitrogen 13 mg/dl (7-17); Calcium 9.8 mg/dl (8.4-10.2); Carbon Dioxide 25 mmol/L (22-30); Chloride 96 mmol/L (98-107); Glucose 130 mg/dl (70-99); Magnesium 1.8 mg/dl (1.6-2.3); Potassium 2.8 mmol/L (3.5-5.1); Sodium 135 mmol/L (135-145); Total Bilirubin 0.5 mg/dl (0.2-1.3); Total Protein 6.7 g/dl (6.3-8.2); eGFR > 60.00
== END ==
LOC: HWLAB 06:26
PROVIDERS: ATTENDING PHYSICIAN Nurse Practitioner Adult Health; FAMILY PHYSICIAN Physician Assistant
DX: D64.9 Anemia, unspecified (principal); C53.1 Malignant neoplasm of exocervix; Z79.01 Long term (current) use of anticoagulants; Z95.2 Presence of prosthetic heart valve; L40.52 Psoriatic arthritis mutilans; E11.9 Type 2 diabetes mellitus without complications
CPT/HCPCS: 36415; 80053; 83735; 85025

== ENCOUNTER → 2024-06-05 06:25 | Outpatient (REF) | payer BC, SELFPAY ==
[2024-06-05 10:09] LABS: % Basophils 0.4 % (0-2); % Eosinophils 0.4 % (0-6); % Immature Granulocytes 0.5 % (0-0.5); % Lymphocytes 15.4 % (20.5-51.1); % Monocytes 7.5 % (1.7-9.3); % Neutrophils 75.8 % (42.2-75.2); Absolute Lymphocytes 1.2 10^3/uL (1.2-3.4); Absolute Monocytes 0.6 10^3/uL (0.1-0.6); Hematocrit 37.7 % (37.0-47.0); Hemoglobin 12.7 g/dL (12.0-16.0); Mean Corp Hgb Conc. 33.7 g/dL (33.0-37.0); Mean Corpuscular Volume 89.1 fL (81.0-99.0); Mean Platelet Volume 9.3 fL (7.4-10.4); Nucleated Red Blood Cells % 0 %; Platelet Count 147 10^3/uL (130-400); Red Blood Cell Count 4.23 10^6/uL (4.20-5.40); White Blood Cell Count 7.9 10^3/uL (4.8-10.8)
[2024-06-05 10:15] LABS: ALT (SGPT) 22 U/L (0-35); AST (SGOT) 21 U/L (14-36); Albumin 4.3 g/dl (3.5-5.0); Alkaline Phosphatase 102 U/L (38-126); Blood Urea Nitrogen 11 mg/dl (7-17); Carbon Dioxide 26 mmol/L (22-30); Chloride 95 mmol/L (98-107); Glucose 138 mg/dl (70-99); Magnesium 1.4 mg/dl (1.6-2.3); Potassium 3.1 mmol/L (3.5-5.1); Sodium 135 mmol/L (135-145); Total Bilirubin 0.7 mg/dl (0.2-1.3); Total Protein 6.6 g/dl (6.3-8.2); eGFR > 60.00
== END ==
LOC: HWLAB 06:25
PROVIDERS: ATTENDING PHYSICIAN Nurse Practitioner Adult Health; FAMILY PHYSICIAN Physician Assistant
DX: D64.9 Anemia, unspecified (principal); C53.1 Malignant neoplasm of exocervix; Z79.01 Long term (current) use of anticoagulants; L40.52 Psoriatic arthritis mutilans; E11.9 Type 2 diabetes mellitus without complications
CPT/HCPCS: 36415; 80053; 83735; 85025

== ENCOUNTER → 2024-06-12 06:27 | Outpatient (REF) | payer BC, SELFPAY ==
[2024-06-12 10:31] LABS: PT 19.6 Sec (11.4-14.6)
[2024-06-12 10:54] LABS: % Basophils 0.5 % (0-2); % Eosinophils 1.6 % (0-6); % Immature Granulocytes 1.8 % (0-0.5); % Lymphocytes 23.9 % (20.5-51.1); % Monocytes 7.5 % (1.7-9.3); % Neutrophils 64.7 % (42.2-75.2); Absolute Eosinophils 0.1 10^3/uL (0-0.7); Absolute Immature Granulocytes 0.1 10^3/uL (0-0.05); Absolute Lymphocytes 0.9 10^3/uL (1.2-3.4); Absolute Monocytes 0.3 10^3/uL (0.1-0.6); Absolute Neutrophils 2.5 10^3/uL (1.4-6.5); Hematocrit 33.4 % (37.0-47.0); Hemoglobin 11.5 g/dL (12.0-16.0); Mean Corp Hgb Conc. 34.4 g/dL (33.0-37.0); Mean Corpuscular Hgb 31.1 pg (27.0-31.0); Mean Corpuscular Volume 90.3 fL (81.0-99.0); Nucleated Red Blood Cells % 0 %; Red Cell Dist. Width 17.2 % (11.5-14.5); White Blood Cell Count 3.9 10^3/uL (4.8-10.8)
[2024-06-12 10:57] LABS: ALT (SGPT) 22 U/L (0-35); AST (SGOT) 23 U/L (14-36); Albumin 4.3 g/dl (3.5-5.0); Alkaline Phosphatase 99 U/L (38-126); Blood Urea Nitrogen 11 mg/dl (7-17); Calcium 8.6 mg/dl (8.4-10.2); Carbon Dioxide 27 mmol/L (22-30); Chloride 96 mmol/L (98-107); Glucose 128 mg/dl (70-99); Magnesium 1.1 mg/dl (1.6-2.3); Potassium 3.3 mmol/L (3.5-5.1); Sodium 135 mmol/L (135-145); Total Bilirubin 0.8 mg/dl (0.2-1.3); Total Protein 6.5 g/dl (6.3-8.2); eGFR > 60.00
[2024-06-12 12:00] LABS: Mean Platelet Volume 9.2 fL (7.4-10.4); Platelet Count 92 10^3/uL (130-400)
== END ==
LOC: HWLAB 06:27
PROVIDERS: ATTENDING PHYSICIAN Internal Medicine Cardiovascular Disease; FAMILY PHYSICIAN Physician Assistant; REFERRING PHYSICIAN Nurse Practitioner Adult Health
DX: Z95.2 Presence of prosthetic heart valve (principal); D64.9 Anemia, unspecified; D53.1 Other megaloblastic anemias, not elsewhere classified; Z79.01 Long term (current) use of anticoagulants; L40.52 Psoriatic arthritis mutilans; E11.9 Type 2 diabetes mellitus without complications
CPT/HCPCS: 36415; 80053; 83735; 85025; 85610

== ENCOUNTER → 2024-06-18 09:31 | Outpatient (REF) | payer BC, SELFPAY ==
[2024-06-18 12:06] LABS: INR 1.89; PT 22.2 Sec (11.4-14.6)
[2024-06-18 12:37] LABS: % Basophils 0.5 % (0-2); % Eosinophils 1.4 % (0-6); % Immature Granulocytes 0.5 % (0-0.5); % Lymphocytes 28.4 % (20.5-51.1); % Monocytes 5.9 % (1.7-9.3); % Neutrophils 63.3 % (42.2-75.2); Absolute Lymphocytes 0.6 10^3/uL (1.2-3.4); Absolute Monocytes 0.1 10^3/uL (0.1-0.6); Absolute Neutrophils 1.4 10^3/uL (1.4-6.5); Hematocrit 30.3 % (37.0-47.0); Hemoglobin 10.4 g/dL (12.0-16.0); Mean Corp Hgb Conc. 34.3 g/dL (33.0-37.0); Mean Corpuscular Hgb 31.2 pg (27.0-31.0); Mean Platelet Volume 9.3 fL (7.4-10.4); Nucleated Red Blood Cells % 0 %; Platelet Count 67 10^3/uL (130-400); Red Blood Cell Count 3.33 10^6/uL (4.20-5.40); Red Cell Dist. Width 17.2 % (11.5-14.5); White Blood Cell Count 2.2 10^3/uL (4.8-10.8)
[2024-06-18 15:03] LABS: ALT (SGPT) 25 U/L (0-35); AST (SGOT) 25 U/L (14-36); Albumin 4.1 g/dl (3.5-5.0); Alkaline Phosphatase 103 U/L (38-126); Blood Urea Nitrogen 14 mg/dl (7-17); Calcium 8.9 mg/dl (8.4-10.2); Carbon Dioxide 26 mmol/L (22-30); Chloride 97 mmol/L (98-107); Glucose 165 mg/dl (70-99); Magnesium 0.9 mg/dl (1.6-2.3); Potassium 3.2 mmol/L (3.5-5.1); Sodium 135 mmol/L (135-145); Total Bilirubin 0.8 mg/dl (0.2-1.3); Total Protein 6.1 g/dl (6.3-8.2); eGFR > 60.00
== END ==
LOC: HWLAB 09:31
PROVIDERS: ATTENDING PHYSICIAN Nurse Practitioner Adult Health; FAMILY PHYSICIAN Physician Assistant; REFERRING PHYSICIAN Internal Medicine Cardiovascular Disease
DX: Z95.2 Presence of prosthetic heart valve (principal); D64.9 Anemia, unspecified; C53.1 Malignant neoplasm of exocervix; Z79.01 Long term (current) use of anticoagulants; L40.52 Psoriatic arthritis mutilans; E11.9 Type 2 diabetes mellitus without complications; K59.00 Constipation, unspecified; L30.9 Dermatitis, unspecified
CPT/HCPCS: 36415; 80053; 83735; 85025; 85610

== ENCOUNTER → 2024-06-26 06:14 | Outpatient (REF) | payer BC, SELFPAY ==
[2024-06-26 10:17] LABS: Hematocrit 28.9 % (37.0-47.0); Hemoglobin 9.6 g/dL (12.0-16.0); Mean Corp Hgb Conc. 33.2 g/dL (33.0-37.0); Mean Corpuscular Hgb 30.9 pg (27.0-31.0); Mean Corpuscular Volume 92.9 fL (81.0-99.0); Mean Platelet Volume 9.2 fL (7.4-10.4); Platelet Count 106 10^3/uL (130-400); Red Blood Cell Count 3.11 10^6/uL (4.20-5.40); Red Cell Dist. Width 18.5 % (11.5-14.5); White Blood Cell Count 1.3 10^3/uL (4.8-10.8)
[2024-06-26 10:35] LABS: ALT (SGPT) 20 U/L (0-35); AST (SGOT) 24 U/L (14-36); Albumin 3.8 g/dl (3.5-5.0); Alkaline Phosphatase 93 U/L (38-126); Blood Urea Nitrogen 9 mg/dl (7-17); Calcium 9.1 mg/dl (8.4-10.2); Carbon Dioxide 22 mmol/L (22-30); Chloride 104 mmol/L (98-107); Glucose 122 mg/dl (70-99); Magnesium 1.1 mg/dl (1.6-2.3); Potassium 3.6 mmol/L (3.5-5.1); Sodium 138 mmol/L (135-145); Total Bilirubin 0.5 mg/dl (0.2-1.3); Total Protein 6.1 g/dl (6.3-8.2); eGFR > 60.00
[2024-06-26 14:01] LABS: % Basophils 0.8 % (0-2); % Eosinophils 3.8 % (0-6); % Immature Granulocytes 0.8 % (0-0.5); % Lymphocytes 38.2 % (20.5-51.1); % Monocytes 9.2 % (1.7-9.3); % Neutrophils 47.2 % (42.2-75.2); Absolute Eosinophils 0.1 10^3/uL (0-0.7); Absolute Lymphocytes 0.5 10^3/uL (1.2-3.4); Absolute Monocytes 0.1 10^3/uL (0.1-0.6); Absolute Neutrophils 0.6 10^3/uL (1.4-6.5); Nucleated Red Blood Cells % 0 %
== END ==
LOC: HWLAB 06:14
PROVIDERS: ATTENDING PHYSICIAN Nurse Practitioner Adult Health; FAMILY PHYSICIAN Physician Assistant
DX: D64.9 Anemia, unspecified (principal); C53.1 Malignant neoplasm of exocervix; Z79.01 Long term (current) use of anticoagulants; Z95.2 Presence of prosthetic heart valve; L40.52 Psoriatic arthritis mutilans; E11.9 Type 2 diabetes mellitus without complications
CPT/HCPCS: 36415; 80053; 83735; 85025

== ENCOUNTER → 2024-06-27 09:17 | Outpatient (REF) | payer BC, SELFPAY ==
[2024-06-27 10:43] LABS: % Basophils 0.7 % (0-2); % Eosinophils 5.9 % (0-6); % Immature Granulocytes 0.7 % (0-0.5); % Neutrophils 45.7 % (42.2-75.2); Absolute Eosinophils 0.1 10^3/uL (0-0.7); Absolute Lymphocytes 0.5 10^3/uL (1.2-3.4); Absolute Monocytes 0.2 10^3/uL (0.1-0.6); Hematocrit 28.1 % (37.0-47.0); Hemoglobin 9.5 g/dL (12.0-16.0); Mean Corp Hgb Conc. 33.8 g/dL (33.0-37.0); Mean Corpuscular Hgb 32.1 pg (27.0-31.0); Mean Corpuscular Volume 94.9 fL (81.0-99.0); Mean Platelet Volume 9.1 fL (7.4-10.4); Platelet Count 133 10^3/uL (130-400); Red Blood Cell Count 2.96 10^6/uL (4.20-5.40); Red Cell Dist. Width 18.4 % (11.5-14.5)
[2024-06-27 10:46] LABS: White Blood Cell Count 1.5 10^3/uL (4.8-10.8)
[2024-06-27 10:47] LABS: Absolute Neutrophils 0.7 10^3/uL (1.4-6.5)
== END ==
LOC: OIDL 09:17
PROVIDERS: ATTENDING PHYSICIAN Nurse Practitioner Adult Health
DX: D64.9 Anemia, unspecified (principal); C53.1 Malignant neoplasm of exocervix; Z79.01 Long term (current) use of anticoagulants; Z95.2 Presence of prosthetic heart valve; L40.52 Psoriatic arthritis mutilans; E11.9 Type 2 diabetes mellitus without complications; K59.00 Constipation, unspecified; L30.9 Dermatitis, unspecified
CPT/HCPCS: 85025

== ENCOUNTER 2024-07-07 13:28 | Emergency (ER) | payer BC, SELFPAY ==
[2024-07-07 13:30] VITALS: BP 127/84
[2024-07-07 14:14] VITALS: BP 152/54
--- NOTE | 2024-07-07 14:33 | ED.GENMED ---
History of Present Illness
General
Chief Complaint: Seizure
Source: patient and family
Time Seen by Provider: 07/07/24 14:09
History of Present Illness
History of Present Illness:
This pt is a 64 yr old female, hx of advanced cervical cancer, presents with an event witnessed by harsh mackay which makes them concerned about a possible sz. Of note, pt was in [facility] Wed-Sat with acute encephalopathy, and reportedy EEG/MRI/CAT
scan unremarkable. She was discharged home on Sunday at baseline. Today, she started to feel increasingly nauseous...and while in car, began to vomit. daughter noted that pt had a short lived (10 seconds) episode of jaw quivering and staring
blankly (not interacting)...and then about one minute of just repeatedly saying 'No hospital' over and over again...followed by return to baseline. No incont/tongue biting, no generalized t/c activity. Of note, pt describes recent nonbloody
diarrhea. She has been experiencing pelvic crapming for some time, unchanged. No recent f/c/headache/dizziness/cp/sob.
Past History
Past History
ED Past Medical History: HTN, Psychiatric (Anxiety), Other (Aortic valve replacement with clear coronary arteries, aortic dissection of thoracic aorta) and Other (cervical cancer CIN3)
ED Past Surgical History: Cardiac (CABG), Cholecystectomy, (X 1) and Orthopedic
Social History
Tobacco: Former smoker
Alcohol: Occasional
Drug: None
Personal:
Living: with family
Employment: Employed
Phy Exam
Physical Exam
Physical Exam:
GENERAL: Alert , in no apparent distress
EYE: pupils equal and reactive, EOMI, no photophobia
NECK: Supple, no significant adenopathy.
ENT: o/p clr, mm slightly dry, no tongue injury noted
CARDIAC: Regular rate and rhythm .
LUNGS: Clear breath sounds bilaterally, no acute respiratory distress, no wheezes/rales/rhonchi
ABDOMEN: Soft, without focal tenderness, no r/g, no cvat
NEUROLOGICAL: Alert and oriented, no focal neuro deficits, [id number] normal, motor 5 out of 5, sensory intact, cranial nerves II through XII intact
SKIN: Warm and dry, skin intact.
MUSCULOSKELETAL: No edema, well perfused.
PSYCH: Normal and appropriate interaction.
Course
Orders/Labs/Results
Orders:
Orders
07/07/24 14:32
0.9% Sodium Chloride 500 ml [Nss] 500 ml IV BOLUS
07/07/24 14:43
Complete Blood Count/No Diff Urgent
Comprehensive Metabolic Panel Urgent
Magnesium Urgent
07/07/24 15:47
Magnesium Oxide 1,000 mg PO NOW STA
07/07/24 15:51
Levetiracetam [Keppra] 1,000 mg PO NOW STA
Abnormal Lab Results
07/07/24
14:43
WBC 13.5 H 10^3/uL
(4.8-10.8)
RBC 2.43 L 10^6/uL
(4.20-5.40)
Hgb 8.0 L g/dL
(12.0-16.0)
Hct 24.0 L %
(37.0-47.0)
MCH 32.9 H pg
(27.0-31.0)
RDW 21.9 H %
(11.5-14.5)
Potassium 3.3 L mmol/L
(3.5-5.1)
Creatinine 0.5 L mg/dL
(0.6-1.0)
Glucose 149 H mg/dl
(70-99)
Magnesium 1.3 L mg/dl
(1.6-2.3)
Total Protein 5.7 L g/dl
(6.3-8.2)
Albumin 3.4 L g/dl
(3.5-5.0)
07/07/24 14:43
07/07/24 14:43
Vital Signs
Initial and Last Documented VS:
Initial Vital Signs
Temp Pulse Resp BP Pulse Ox
98.7 F 120 20 127/84 99
07/07/24 13:30 07/07/24 13:30 07/07/24 13:30 07/07/24 13:30 07/07/24 13:30
Last Documented Vital Signs
Temp Pulse Resp BP Pulse Ox
98.7 F 100 22 125/94 99
07/07/24 13:30 07/07/24 16:15 07/07/24 16:15 07/07/24 16:00 07/07/24 13:30
*Critical Care Note
Total Time (30-74mins, 75-104mins- exclusive of procedures): Not Applicable
Update Note
Update Note:
Patient presents to the Emergency Department with __staring straight ahead with jaw quivering
Number and Complexity of Problems Addressed at the Encounter
� Chronic conditions affecting care:
� Acute Exacerbation and/or Progression of Chronic Illness:
� Differential Diagnosis includes: But not limited to short-lived seizure, anxiety, myoclonic jerk, etc. etc. etc.
Amount and/or Complexity of Data to be Reviewed and Analyzed
� I performed an independent evaluation of and my interpretation is:
EKG:
CT:
Xrays:
Laboratory Studies: White blood cell count elevation which I suspect is related to patient's recent Neulasta, anemia noted which is relatively baseline mild hypokalemia, mild hypomagnesia
Other:
� Review of other/old records reveals:
� Clinical information was obtained by an independent historian: Daughter who is bedside
� Prescriptions/Medications Considered but not given:
� Further testing considered but not performed:
Risk of Complications and/or Morbidity or Mortality of Patient Management
� Social determinants of health affecting care:
� Discussion with other providers (PCP, Hospitalists, Consultants, etc):
� Escalation of care including admission/observation vs risk of discharge considered: Consult by neurology Dr. FORD, suspects patient had a complex partial seizure, patient stable for discharge recommends load with p.o. Keppra 1000
mg here and Rx for 500 mg twice daily. All was discussed with patient. In addition, note made of her hypomagnesium level. Of note calcium within normal limits. Supplement given here patient advised to continue with supplements at home and close
follow-up. PT ADVISED SHE CAN NOT DRIVE UNTIL CLEARED BY NEURO, FORM FILED WITH DMV
ED Attending Note
-
Portions of this chart may have been created with voice recognition software.� Occasional wrong word or��sound alike� substitutions may have occurred due to the inherent limitations of voice recognition software.
Discharge Plan
Departure
Patient Disposition: Home (Routine Discharge)
Date of Disposition: 07/07/24
Time of Disposition: 15:58
Patient with high blood pressure during this ER visit?: Yes
Condition: Good
Discharge Problem:
Complex partial seizure
Instructions: Seizures, Adult (DC), BLOOD PRESSURE
Prescriptions:
New
levetiracetam [Keppra] 500 mg tablet
500 mg PO BID Qty: 60 0RF
No Action
omeprazole 40 MG capsule,delayed release(DR/EC)
40 mg PO DAILY
montelukast 10 MG tablet
10 mg PO HS
warfarin 5 mg Tablet
10 mg PO SUMOTUFRSA@0800
Rx Instructions:
Dose as directed
warfarin 5 mg Tablet
5 mg PO WETH@0800
Rx Instructions:
Dose as directed
fexofenadine 180 mg Tablet
180 mg PO DAILY
diltiazem HCl 300 mg capsule,extended release 24hr
300 mg PO HS
fluticasone propionate [Flonase] 50 mcg/actuation [place],Suspension
1 spray INTRANASAL DAILY PRN (Reason: allergies)
rosuvastatin 5 mg Tablet
5 mg PO HS
duloxetine 60 mg capsule,delayed release(DR/EC)
120 mg PO DAILY
pregabalin 100 mg Capsule
100 mg PO HS
Cosentyx Pen (2 Pens) 150 mg/mL pen injector
150 mg SC Q2W
Patient Comments:
10/31/2023, took last weekend per pt.
Mounjaro 2.5 mg/0.5 mL pen injector
10 mg SC FR@0800
acetaminophen [Tylenol Arthritis] 650 mg Tablet Extended Release
1,300 mg PO Q8H
enoxaparin [Lovenox] 80 mg/0.8 mL Syringe
80 mg SC BID
Rx Instructions:
Bridge for Warfarin
Medical Cannibis
1 gummy PO PRN PRN (Reason: pain, sleep, anxiety)
Referrals:
Hoda Lainez PA [Family Provider] -
Activity Restrictions/Additional Instructions:
IF YOU DEVELOP RECURRENT SEIZURE, FEVER, SEVERE HEADACHE, CHEST PAIN, TROUBLE BREATHING OR OTHER WORRISOME SIGNS, GO TO THE ER IMMEDIATELy! YOU ARE NOT PERMITTED TO DRIVE UNTIL YOU ARE CLEARED BY THE NEUROLOGIST. PLEASE SEE THE NEUROLOGIST IN CLOSE
FOLLOW UP. cALL [phone] FOR AN APPOINTMENT.
Interventions
Interventions:
*Risk Screen - Suicide Last Done: 07/07/24 14:49
*General Assessment Last Done: 07/07/24 14:49
*Neglect/Abuse Screening Last Done: 07/07/24 14:49
ED- Fall Risk Assessment Last Done: 07/07/24 14:49
*ED COVID-19 Vaccine History Last Done: 07/07/24 14:49
*Nursing Disposition Last Done: 07/07/24 16:24
ED- Cardiac Assessment Last Done: 07/07/24 14:49
ED- Neurological Assessment Last Done: 07/07/24 14:49
ED- Pulmonary Assessment Last Done: 07/07/24 14:49
Discharge Date and Time
Discharge Date/Time: 07/07/24 16:56
Print Language: SINGAPOREAN
[2024-07-07] MEDS: NSS 500 IV (14:43)
[2024-07-07 14:55] LABS: Mean Corp Hgb Conc. 33.3 g/dL (33.0-37.0); Mean Corpuscular Hgb 32.9 pg (27.0-31.0); Mean Corpuscular Volume 98.8 fL (81.0-99.0); Mean Platelet Volume 9.4 fL (7.4-10.4); Platelet Count 139 10^3/uL (130-400); Red Blood Cell Count 2.43 10^6/uL (4.20-5.40); Red Cell Dist. Width 21.9 % (11.5-14.5); White Blood Cell Count 13.5 10^3/uL (4.8-10.8)
[2024-07-07 15:00] VITALS: BP 111/97
[2024-07-07 15:07] LABS: ALT (SGPT) 14 U/L (0-35); AST (SGOT) 16 U/L (14-36); Albumin 3.4 g/dl (3.5-5.0); Alkaline Phosphatase 111 U/L (38-126); Blood Urea Nitrogen 10 mg/dl (7-17); Calcium 9.4 mg/dl (8.4-10.2); Carbon Dioxide 26 mmol/L (22-30); Chloride 101 mmol/L (98-107); Glucose 149 mg/dl (70-99); Magnesium 1.3 mg/dl (1.6-2.3); Potassium 3.3 mmol/L (3.5-5.1); Sodium 136 mmol/L (135-145); Total Bilirubin 0.4 mg/dl (0.2-1.3); Total Protein 5.7 g/dl (6.3-8.2); eGFR > 60.00
[2024-07-07 16:00] VITALS: BP 125/94
--- NOTE | 2024-07-07 16:02 | CON.NEURO ---
Neuro Assessment/Plan
Assessment
MRI at [facility]: dtr states report with chronic stroke of which they were unaware, 2 microbleeds, white matter disease
EEG at [facility]: dtr states normal
complex partial seizure disorder
Plan
load Keppra 1000, start Keppra 500 BID
already scheduled for outpatient neurology
Consultation
Order
Date of Consultation: 07/07/24
Requesting Provider: Nasrin [facility]
Reason for Consult: Seizure
Subjective/Objective
Subjective Data
Date of Service: July 07, 2024
She is a 64 year old woman with history of Cervical ca stage 2b, presenting with event described by dtr as staring, jaw quivering x10 seconds, followed by another minute of repeating 'no hospital' the patient does not recall any of this. Similar
event prompted a recent admission to [facility] where she was worked up with MRI/EEG/CT which did not find the cause of this.
Objective Data
Vital Signs
Temp Pulse Resp BP Pulse Ox
37.1 C 96 11 152/54 99
07/07/24 13:30 07/07/24 14:45 07/07/24 14:45 07/07/24 14:14 07/07/24 13:30
Lab Results
07/07/24 14:43
07/07/24 14:43
Sodium 136 mmol/L (135-145) 07/07/24 14:43
Potassium 3.3 mmol/L (3.5-5.1) L 07/07/24 14:43
BUN 10 mg/dl (7-17) 07/07/24 14:43
Glucose 149 mg/dl (70-99) H 07/07/24 14:43
Calcium 9.4 mg/dl (8.4-10.2) 07/07/24 14:43
Patient Allergies
adhesive tape [Adhesive Tape] Allergy (Verified 07/07/24 13:33)
Rash
hydrocodone Allergy (Verified 07/07/24 13:33)
Rash and vomiting.
pollen extracts Allergy (Verified 07/07/24 13:33)
Runny nose, itching - seasonal
Sulfa (Sulfonamide Antibiotics) Allergy (Verified 07/07/24 13:33)
hallucinations
Physical Exam
-
AAOx3, speech clear
face symmetric
moving all ext antigravity
Medications
-
Home Medications
�Medication �Instructions �Recorded
montelukast 10 mg tablet 10 mg PO HS Allergies 10/04/18
omeprazole 40 mg capsule,delayed 40 mg PO DAILY Gastrointestinal 10/04/18
release issue
warfarin 5 mg tablet 5 mg PO WETH@0800 Blood clot 05/14/22
prevention/tx
warfarin 5 mg tablet 10 mg PO SUMOTUFRSA@0800 Blood 05/14/22
clot prevention/tx
diltiazem HCl 300 mg 300 mg PO HS 10/31/23
capsule,extended release 24 hr
duloxetine 60 mg capsule,delayed 120 mg PO DAILY 10/31/23
release
fexofenadine 180 mg tablet 180 mg PO DAILY 10/31/23
fluticasone propionate 50 1 spray intranasal DAILY PRN 10/31/23
mcg/actuation nasal allergies
spray,suspension
pregabalin 100 mg capsule 100 mg PO HS 10/31/23
rosuvastatin 5 mg tablet 5 mg PO HS 10/31/23
secukinumab 150 mg/mL subcutaneous 150 mg SC Q2W 10/31/23
pen injector (Cosentyx Pen 300
mg/2 Pens ()
tirzepatide 2.5 mg/0.5 mL 10 mg SC FR@0800 10/31/23
subcutaneous pen injector
(Mounjaro)
Medical Cannibis 1 gummy PO PRN PRN pain, sleep, 03/21/24
anxiety
acetaminophen 650 mg 1,300 mg PO Q8H Pain 03/21/24
tablet,extended release
enoxaparin 80 mg/0.8 mL 80 mg SC BID 03/21/24
subcutaneous syringe (Lovenox)
levetiracetam 500 mg tablet 500 mg PO BID #60 tabs 07/07/24
(Keppra)
[2024-07-07] MEDS: KEPPRA 1000 MG PO (16:04)
[2024-07-07] MEDS: MAGNESIUM OXIDE 1000 MG PO (16:04)
== END 2024-07-07 16:56 | disposition home or self-care (01) ==
LOC: EMR 13:28
PROVIDERS: EMERGENCY PHYSICIAN Emergency Medicine; FAMILY PHYSICIAN Physician Assistant; OTHER PHYSICIAN Psychiatry & Neurology Clinical Neurophysiology
DX: G40.209 Localization-related (focal) (partial) symptomatic epilepsy and epileptic syndromes with complex partial seizures, not intractable, without status epilepticus (principal); I10 Essential (primary) hypertension; Z87.891 Personal history of nicotine dependence
CPT/HCPCS: 99284; 96360; 80053; 83735; 85027

== ENCOUNTER → 2024-07-10 09:24 | Outpatient (REF) | payer BC, SELFPAY ==
[2024-07-10 12:37] LABS: INR 1.32; PT 16.9 Sec (11.4-14.6)
[2024-07-10 12:38] LABS: APTT 32.6 Sec (23.4-35.0)
[2024-07-10 12:44] LABS: % Basophils 0.9 % (0-2); % Eosinophils 0.3 % (0-6); % Immature Granulocytes 2.8 % (0-0.5); % Lymphocytes 6.6 % (20.5-51.1); % Monocytes 7.9 % (1.7-9.3); % Neutrophils 81.5 % (42.2-75.2); Absolute Basophils 0.1 10^3/uL (0-0.2); Absolute Immature Granulocytes 0.3 10^3/uL (0-0.05); Absolute Lymphocytes 0.6 10^3/uL (1.2-3.4); Absolute Monocytes 0.7 10^3/uL (0.1-0.6); Absolute Neutrophils 7.6 10^3/uL (1.4-6.5); Hemoglobin 8.4 g/dL (12.0-16.0); Mean Corp Hgb Conc. 32.3 g/dL (33.0-37.0); Mean Corpuscular Hgb 33.7 pg (27.0-31.0); Mean Corpuscular Volume 104.4 fL (81.0-99.0); Nucleated Red Blood Cells % 0.3 %; Platelet Count 190 10^3/uL (130-400); Red Blood Cell Count 2.49 10^6/uL (4.20-5.40); White Blood Cell Count 9.3 10^3/uL (4.8-10.8)
[2024-07-10 12:54] LABS: ALT (SGPT) 15 U/L (0-35); AST (SGOT) 19 U/L (14-36); Albumin 3.7 g/dl (3.5-5.0); Alkaline Phosphatase 105 U/L (38-126); Blood Urea Nitrogen 10 mg/dl (7-17); Calcium 9.6 mg/dl (8.4-10.2); Carbon Dioxide 27 mmol/L (22-30); Chloride 102 mmol/L (98-107); Glucose 113 mg/dl (70-99); Potassium 3.9 mmol/L (3.5-5.1); Sodium 137 mmol/L (135-145); Total Bilirubin 0.4 mg/dl (0.2-1.3); Total Protein 5.9 g/dl (6.3-8.2); eGFR > 60.00
[2024-07-10 13:04] LABS: Total Iron Binding Capacity 282 ug/dl (265-497)
== END ==
LOC: HWLAB 09:24
PROVIDERS: ATTENDING PHYSICIAN Physician Assistant
DX: I35.0 Nonrheumatic aortic (valve) stenosis (principal); Z79.01 Long term (current) use of anticoagulants; D50.0 Iron deficiency anemia secondary to blood loss (chronic); C53.8 Malignant neoplasm of overlapping sites of cervix uteri
CPT/HCPCS: 36415; 80053; 82728; 83550; 85025; 85610; 85730; 87077; 87086; 87186

== ENCOUNTER → 2024-07-15 07:42 | Outpatient (REF) | payer BC, SELFPAY ==
[2024-07-15 10:04] LABS: INR 1.41; PT 17.5 Sec (11.4-14.6)
== END ==
LOC: HWLAB 07:42
PROVIDERS: ATTENDING PHYSICIAN Internal Medicine Cardiovascular Disease; FAMILY PHYSICIAN Physician Assistant
DX: Z95.2 Presence of prosthetic heart valve (principal)
CPT/HCPCS: 36415; 85610

== ENCOUNTER → 2024-10-10 09:49 | Outpatient (REF) | payer OTHER, SELFPAY | LOC: MRI 09:49 | PROVIDERS: ATTENDING PHYSICIAN Nurse Practitioner Adult Health; FAMILY PHYSICIAN Physician Assistant | DX: G40.209 Localization-related (focal) (partial) symptomatic epilepsy and epileptic syndromes with complex partial seizures, not intractable, without status epilepticus (principal) | CPT/HCPCS: 70553; A9585 ==

== ENCOUNTER → 2024-12-23 12:05 | Outpatient (REF) | payer OTHER, SELFPAY ==
[2024-12-23 12:05] VITALS: BP 108/67; BP_SYST 83
[2024-12-23 12:58] LABS: INR 3.59; PT 35.6 Sec (11.4-14.6)
--- NOTE | 2024-12-23 13:00 | PTCARENOTE ---
Patient states home INR 4.7. Advised that that was too high for procedure. Patient requesting that we check one here. NERY Garcia aware and PT/INR drawn from right [facility] and sent to lab
== END ==
LOC: RADI 12:05
PROVIDERS: Physician Assistant; ATTENDING PHYSICIAN Internal Medicine Hematology & Oncology; FAMILY PHYSICIAN Physician Assistant
DX: Z45.2 Encounter for adjustment and management of vascular access device (principal); C53.1 Malignant neoplasm of exocervix; Z53.8 Procedure and treatment not carried out for other reasons; R79.1 Abnormal coagulation profile
CPT/HCPCS: 85610

== ENCOUNTER → 2025-01-01 12:52 | Outpatient (REF) | payer OTHER, SELFPAY ==
[2025-01-01 13:17] VITALS: BP 121/89; BP_SYST 76
[2025-01-01 13:26] LABS: INR 1.94; PT 22.6 Sec (11.4-14.6)
[2025-01-01 14:43] VITALS: BP 138/69; BP_SYST 64
== END ==
LOC: RADI 12:52
PROVIDERS: ATTENDING PHYSICIAN Internal Medicine Hematology & Oncology; REFERRING PHYSICIAN Physician Assistant
DX: Z45.2 Encounter for adjustment and management of vascular access device (principal); C53.1 Malignant neoplasm of exocervix
CPT/HCPCS: 36415; 36590; 77001; 85610

== ENCOUNTER → 2025-01-13 16:08 | Outpatient (REF) | payer OTHER, SELFPAY | LOC: RAD 16:08 | PROVIDERS: ATTENDING PHYSICIAN Registered Nurse; FAMILY PHYSICIAN Physician Assistant | DX: I71.012 Dissection of descending thoracic aorta (principal) | CPT/HCPCS: 71275; Q9967 ==

== ENCOUNTER → 2025-01-18 06:27 | Outpatient (REF) | payer OTHER, SELFPAY | LOC: MRI 06:27 | PROVIDERS: ATTENDING PHYSICIAN Orthopaedic Surgery; FAMILY PHYSICIAN Physician Assistant | DX: M25.511 Pain in right shoulder (principal) | CPT/HCPCS: 73221 ==